=== PATIENT | male | born 1955 | race Caucasian/White ===

== ENCOUNTER 2019-12-03 19:52 | Inpatient (IN) ==
[2019-12-03] MEDS ORDERED: ONDANSETRON INJ 2 MG/ML 2 ML VIAL IV STA (20:15)
[2019-12-03] MEDS ORDERED: PIPERACILL/TAZOBAC CONSULT ACTIVE PRN (20:15)
[2019-12-03] MEDS ORDERED: PIPERACILLIN/TAZOBACTAM 4.5 GM/120 ML BAG IV ONE (20:15)
[2019-12-03 20:44] LABS: Basophils # (auto) 0.04 K/uL (0-0.2); Basophils % (auto) 0.3 %; Eosinophils # (auto) 0.09 K/uL (0-0.5); Eosinophils % (auto) 0.7 %; Hematocrit (blood only) 36.4 % (42-52); Hemoglobin 12.2 g/dL (14.0-18.0); Immature Granulocytes # (auto) 0.03 K/uL (0.00-0.02); Immature Granulocytes % (auto) 0.2 %; Lymphocytes # (auto) 2.27 K/uL (1.2-3.4); Lymphocytes % (auto) 17.1 %; Mean Corpuscular Hemoglobin 29.4 pg (25-34); Mean Corpuscular Hgb Conc 33.5 g/dL (32-36); Mean Corpuscular Volume 87.7 fL (80-100); Mean Platelet Volume 9.4 fL (7.4-10.4); Monocytes # (auto) 0.86 K/uL (0.11-0.59); Monocytes % (auto) 6.5 %; Neutrophils # (auto) 9.95 K/uL (1.4-6.5); Neutrophils % (auto) 75.2 %; Platelet Count 290 K/uL (130-400); RDW Coefficient of Variation 15.5 % (11.5-14.5); RDW Standard Deviation 50.3 fL (36.4-46.3); Red Blood Count 4.15 M/uL (4.7-6.1); White Blood Count 13.24 K/uL (4.8-10.8)
[2019-12-03 20:55] LABS: INR 1.1 (0.9-1.1); Partial Thromboplastin Ratio 1.1; Partial Thromboplastin Time 29.7 Seconds (21.0-31.0); Prothrombin Time 11.4 Seconds (9.0-12.0)
[2019-12-03 20:58] LABS: Albumin Level 2.9 gm/dl (3.4-5.0); BUN Creatinine Ratio 15.7 (10-20); Calcium 9.3 mg/dl (8.5-10.1); Creatinine Clr Calc Pharmacy 70.1 ml/min; Est GFR (African American) 85.3; Est GFR (Non-African American) 73.6; Magnesium 1.8 mg/dl (1.8-2.4); Potassium 3.7 mmol/L (3.5-5.1)
[2019-12-03 21:01] LABS: Albumin Globulin Ratio 0.6 (0.9-2); Bilirubin,Total 0.6 mg/dl (0.2-1); Globulin 4.6 gm/dl (2.5-4.0); Total Protein 7.5 gm/dl (6.4-8.2)
[2019-12-03] MEDS ORDERED: MoRPHine SULFATE 10 MG/ML CARP/VIAL IV STA (21:04)
--- NOTE | 2019-12-03 21:08 | XRay Report ---
XR chest 1V portable CLINICAL HISTORY: 64 years-old Male presenting with SEPSIS. TECHNIQUE: Portable upright AP view of the chest was obtained. COMPARISON: 02/26/2019. FINDINGS: Left internal jugular Mediport has been accessed and terminates in the superior cavoatrial junction. Several external leads noted. Atherosclerosis of the aortic arch. Cardiac silhouette top normal in si ze. Low lung volumes with hypoventilatory changes including bibasilar opacities, which are new from p rior. No large effusion or pneumothorax. Degenerative changes of the thoracic spine. Cholecystectomy clips noted. IMPRESSION: 1. Low lung volumes with hypoventilatory changes and bibasilar atelectasis. ACT 112: Negative or not required by law. Electronically signed by: Rubio Villa M.D. 12/03/2019 9:06 PM
[2019-12-03 21:16] LABS: Appearance Urine Cloudy (Clear); Bacteria Urine Automated 4+ (Negative); Bilirubin Urine Negative (Negative); Blood Urine 2+ (Negative); Cast Urine Automated 0 /lpf (0-5); Color Urine Yellow; Epithelial Cell Urine Auto 0-5 /lpf (0-5); Glucose Urine UA Negative (Negative); Ketones Urine Negative (Negative); Leukocyte Esterase Urine 3+ (Negative); Nitrite Urine Positive (Negative); Protein Urine Trace (Negative); RBC Urine Automated 0-4 /hpf (0-4); Specific Gravity Urine 1.017 (1.000-1.030); Urobilinogen Urine Negative (Negative); WBC Urine Automated >30 /hpf (0-5)
[2019-12-03] MEDS ORDERED: IOVERSOL 100ml IV PRN (21:19)
[2019-12-03] MEDS ORDERED: MoRPHine SULFATE 4 MG/ML 1 ML CARP\\VIAL ONE (21:23)
[2019-12-03] MEDS ORDERED: MoRPHine SULFATE 2 MG/ML CARP ONE (21:23)
--- NOTE | 2019-12-03 21:38 | CT Scan Report ---
CT abd pelvis IV con only CLINICAL HISTORY: 64 years-old Male presenting with abd pain, nausea, and fever, previous liver surge ry. TECHNIQUE: Multidetector CT of the abdomen and pelvis was performed after the administration of intra venous contrast. IV contrast: 93 mL of Optiray 320. One or more dose lowering techniques were used co nsistent with the principles of ALARA (as low as reasonably achievable), including automatic exposure control, mA or kV adjustment to individual patient size, and/or use of iterative reconstruction. COMPARISON: 01/07/2019. CT DOSE (mGy.cm): The estimated cumulative dose is 431.30 mGy.cm. FINDINGS: [employer] topogram: Unremarkable. Lung bases: Tip of a central venous catheter terminates at the superior cavoatrial junction. Cardiac silhouette normal in size. No pericardial or pleural effusion. Extensive bibasilar bandlike opacities and dependent changes likely extensive atelectasis. Punctate calcifications bilaterally in the lower lobes suggest progress fibrotic changes possibly in the setting of chronic aspiration. Liver: Interval development of an altered morphology of the liver primarily affecting the hepatic dom e. There is retraction of the liver capsule in segment 8 due to the presence of a dominant hypoenhanc ing mass measuring 6.1 x 5.6 cm. Multiple surrounding small hypodense lesions primarily in segments 4 A and 7. Redemonstration of a hepatic cyst along the fissure for the ligamentum teres. Vasculature is patent. Biliary: No intrahepatic or extrahepatic biliary ductal dilatation. Gallbladder contains gallstones. Pancreas: Mild parenchymal atrophy. Spleen: Normal. Adrenal glands: Normal. Kidneys and ureters: Normal. No hydronephrosis. Bladder: Incompletely evaluated secondary to underdistention. Focus of gas within the bladder lumen n oted. There is also suggestion of a fistula arising from the posterior bladder wall extending to the lower sigmoid colon. Bladder wall thickening of the posterior wall. Pelvic organs: Prostate and seminal vesicles normal. Bowel: Wall thickening of the mid to distal sigmoid colon. Diverticulosis is also evident in this reg ion. Wall thickening has overall slightly decreased from prior exam. The fistula extends to the anter ior wall of the rectosigmoid junction as mentioned. Pericolonic fat infiltration at the level of the mid sigmoid colon with adjacent peritoneal thickening. There also may be a developing 2.2 cm collecti on within the mesentery of the sigmoid colon (series 3 image 266). Lesser degree of diverticulosis no crow in the more proximal colon. The appendix is normal. No bowel obstruction. Peritoneal cavity: No free fluid or intraperitoneal gas. Developing collection in the region of the s igmoid mesentery as mentioned. Lymph nodes: No enlarged lymph nodes in the abdomen or pelvis. Vasculature: Atherosclerosis of the normal caliber abdominal aorta. IVC patent. Abdominal wall: Postsurgical changes of the midline ventral abdominal wall. Musculoskeletal: Degenerative changes of the spine. IMPRESSION: 1. Significant interval progression of disease at the right hepatic dome with the dominant lesion in segment 8 now measuring over 6 cm, previously 2 cm. Retractile changes in the liver may in part refl ect postsurgical change though there is a residual viable lesion. 2. Numerous surrounding satellite lesions, new from prior consistent with progression of disease. Th is is highly concerning for metastatic disease as mentioned on prior exam. Presumably, the dominant l esion is not a hepatic primary such as cholangiocarcinoma. Correlate with the patient's history. 3. 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 The wall thickening in the sigmoid colon may represent the site of primary malignancy and/or chronic diverticular disease. 4. Bladder wall thickening may be reactive to the presence of the fistula. 5. IMPORTANTLY, evidence of acute diverticulitis in the mid sigmoid colon with a developing 2.2 cm f luid collection in the adjacent sigmoid mesentery concerning for phlegmon/early abscess. 6. Extensive bibasilar scarring and atelectasis at the lung bases. ACT 112: Negative or not required by law. Electronically signed by: Rubio Villa M.D. 12/03/2019 9:37 PM
--- NOTE | 2019-12-04 00:09 | Emergency Department Note ---
Entered by Idalia Steven acting as a scribe for Mendez Glynn DO History of Present Illness General Chief complaint: Fever Stated complaint: FEVER,PAIN,HEADACHE Source: patient History of Present Illness Provider complaint: abdominal pain Onset (ago): day(s) (this morning) Location: abdomen Maximum Pain Intensity: 4 Relieved By: + none Exacerbated By: + none Associated symptoms: + diaphoresis, + fever/chills, + headaches, + nausea/vomiting (+nausea, -vomiting) and + other (-pain/burning during urination); no cough The patient is a 64 year old male who presents to the Emergency Room with complaints of abdominal pain since this morning. The patient notes that he has been experiencing nausea, diarrhea, headache, fever, chills, and diaphoresis. He denies any vomiting, cough, pain or burning during urination. He reports that he was in [place] today for a PET scan for his stage 4 colon cancer. He mentions that his last chemotherapy was October 26. He notes that he has a history of liver surgery last year. No other exacerbating or remitting factors. Home Medications Home Medications Medication Instructions Recorded Confirmed Type acetaminophen [Tylenol] 650 mg PO QID PRN 12/03/19 12/03/19 History polyethylene glycol 3350 [Miralax] 17 g PO DAILY PRN 12/03/19 12/03/19 History Allergies Allergy/AdvReac Type Severity Reaction Status Date / Time No Known Allergies Allergy nka Verified 12/03/19 22:31 Past Med/Surg History Medical History Colon cancer Diagnosed 01/05/19 - Mod Differentiated Invasive Carcinoma - positive KRAS Gene Mutation Kidney stone (Resolved) Surgical History History of colonoscopy (Resolved) History of tooth extraction (Resolved) Status post proximal row carpectomy of wrist (Resolved) REPAIRED RT/LEFT SIDE Family History Mother , Passed age 85 of unknown cancer No problems noted. Father , Passed age 78 of [place] No problems noted. Sister No problems noted. Son No problems noted. Daughter No problems noted. Daughter No problems noted. 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 and A total of 10 systems reviewed and were otherwise negative Physical Exam Vital Signs Vital Signs - 24 hr 12/03/19 19:58 12/03/19 20:32 12/03/19 20:45 Temperature 36.8 C Temperature Source Oral Pulse Rate 128 H 128 H 98 H Pulse Rate [Apical] Pulse Rate from SpO2 Sensor 98 H Pulse Rhythm Regular Pulse Rhythm [Apical] Pulse Strength [Apical] Respiratory Rate 18 18 13 Respiratory Effort / Characteristics Non-Labored Spontaneous Respiratory Depth Normal Respiratory Pattern Regular Blood Pressure 112/74 122/73 Blood Pressure [Right Arm] Blood Pressure Mean 86 92 Blood Pressure Mean [Right Arm] Blood Pressure Position Sitting Blood Pressure Position [Right Arm] Pulse Oximetry 93 93 93 Oxygen Delivery Method Room Air Room Air Sepsis Recent Fever Within 48 Hours No Sepsis Action Taken by Nursing No Action Required 12/03/19 20:53 12/03/19 21:00 12/03/19 21:01 Temperature Temperature Source Pulse Rate 99 H 98 H 97 H Pulse Rate [Apical] Pulse Rate from SpO2 Sensor 99 H 98 H 99 H Pulse Rhythm Pulse Rhythm [Apical] Pulse Strength [Apical] Respiratory Rate 15 16 17 Respiratory Effort / Characteristics Respiratory Depth Respiratory Pattern Blood Pressure 123/89 Blood Pressure [Right Arm] Blood Pressure Mean 93 Blood Pressure Mean [Right Arm] Blood Pressure Position Blood Pressure Position [Right Arm] Pulse Oximetry 93 94 94 Oxygen Delivery Method Sepsis Recent Fever Within 48 Hours Sepsis Action Taken by Nursing 12/03/19 21:10 12/03/19 21:28 12/03/19 21:30 Temperature Temperature Source Pulse Rate 93 H 94 H 95 H Pulse Rate [Apical] 93 H Pulse Rate from SpO2 Sensor 93 H 93 H 95 H Pulse Rhythm Pulse Rhythm [Apical] Pulse Strength [Apical] Respiratory Rate 13 16 14 Respiratory Effort / Characteristics Respiratory Depth Respiratory Pattern Blood Pressure 103/64 Blood Pressure [Right Arm] 103/64 Blood Pressure Mean 76 Blood Pressure Mean [Right Arm] 77 Blood Pressure Position Blood Pressure Position [Right Arm] Sitting Pulse Oximetry 94 94 95 Oxygen Delivery Method Sepsis Recent Fever Within 48 Hours Sepsis Action Taken by Nursing 12/03/19 21:31 12/03/19 21:40 12/03/19 21:50 Temperature Temperature Source Pulse Rate 97 H 92 H 88 Pulse Rate [Apical] Pulse Rate from SpO2 Sensor 97 H 91 H 88 Pulse Rhythm Pulse Rhythm [Apical] Pulse Strength [Apical] Respiratory Rate 20 14 18 Respiratory Effort / Characteristics Respiratory Depth Respiratory Pattern Blood Pressure Blood Pressure [Right Arm] Blood Pressure Mean Blood Pressure Mean [Right Arm] Blood Pressure Position Blood Pressure Position [Right Arm] Pulse Oximetry 95 92 92 Oxygen Delivery Method Sepsis Recent Fever Within 48 Hours Sepsis Action Taken by Nursing 12/03/19 22:00 12/03/19 22:01 12/03/19 22:10 Temperature Temperature Source Pulse Rate 89 85 87 Pulse Rate [Apical] Pulse Rate from SpO2 Sensor 89 85 87 Pulse Rhythm Pulse Rhythm [Apical] Pulse Strength [Apical] Respiratory Rate 24 16 16 Respiratory Effort / Characteristics Respiratory Depth Respiratory Pattern Blood Pressure 101/62 Blood Pressure [Right Arm] Blood Pressure Mean 77 Blood Pressure Mean [Right Arm] Blood Pressure Position Blood Pressure Position [Right Arm] Pulse Oximetry 94 93 94 Oxygen Delivery Method Sepsis Recent Fever Within 48 Hours Sepsis Action Taken by Nursing 12/03/19 22:20 12/03/19 22:30 12/03/19 22:31 Temperature Temperature Source Pulse Rate 82 77 79 Pulse Rate [Apical] Pulse Rate from SpO2 Sensor 82 78 79 Pulse Rhythm Pulse Rhythm [Apical] Pulse Strength [Apical] Respiratory Rate 15 19 14 Respiratory Effort / Characteristics Respiratory Depth Respiratory Pattern Blood Pressure 95/56 L Blood Pressure [Right Arm] Blood Pressure Mean 64 Blood Pressure Mean [Right Arm] Blood Pressure Position Blood Pressure Position [Right Arm] Pulse Oximetry 94 95 95 Oxygen Delivery Method Sepsis Recent Fever Within 48 Hours Sepsis Action Taken by Nursing 12/03/19 22:45 Temperature Temperature Source Pulse Rate Pulse Rate [Apical] 81 Pulse Rate from SpO2 Sensor Pulse Rhythm Pulse Rhythm [Apical] Regular Pulse Strength [Apical] Normal Respiratory Rate 18 Respiratory Effort / Characteristics Non-Labored Respiratory Depth Normal Respiratory Pattern Blood Pressure Blood Pressure [Right Arm] 98/62 L Blood Pressure Mean Blood Pressure Mean [Right Arm] 74 Blood Pressure Position Blood Pressure Position [Right Arm] Lying Pulse Oximetry 93 Oxygen Delivery Method Room Air Sepsis Recent Fever Within 48 Hours Sepsis Action Taken by Nursing GENERAL: alert, sitting up in bed, slightly ill appearing, diaphoretic, wearing gown EYE EXAM: normal conjunctiva OROPHARYNX: no exudate, no erythema, lips, buccal mucosa, and tongue normal and mucous membranes are moist NECK: supple, no nuchal rigidity, no adenopathy, non-tender LUNGS: Clear to auscultation. Normal chest wall mechanics HEART: no murmurs, S1 normal and S2 normal ABDOMEN: abdomen soft, non-tender, normo-active bowel sounds, no masses, no rebound or guarding. BACK: Back is symmetrical on inspection and there is no deformity, no midline tenderness, no CVA tenderness. SKIN: no rashes and no bruising UPPER EXTREMITIES: upper extremities are grossly normal. LOWER EXTREMITIES: No pitting edema. NEURO EXAM: Normal sensorium, cranial nerves II-XII grossly intact, normal speech, no gross weakness of arms, no gross weakness of legs. Course Course ED COURSE: Vital signs were reviewed and showed normotensive The patients medical record was reviewed The above diagnostic studies were performed and reviewed. ED treatments and interventions as stated above. 2008: The patient was evaluated in room B10. A complete history and physical examination was performed. 2204: I discussed the patient's [facility], he will accept the patient for further evaluation. 2214: Upon reevaluation, the patient is resting comfortably. I discussed my findings with the patient and he understands and agrees with the treatment plan. Based on the patients age, coexisting illnesses, exam and lab findings the deci trina to treat as an inpatient was made. The patient remained stable while under my care. The patient will be evaluated for further management. Administered Medications Ioversol (Optiray 320 100ml) 93 ml IV ONCE PRN PRN Reason: Interaction Checking Stop: 12/07/19 21:18 Last Admin: 12/03/19 21:20 Dose: 93 ml Documented by: [id number] Discontinued Medications Piperacillin Sod/Tazobactam Sod (Zosyn) 4.5 gm in 120 mls @ 240 mls/hr IV NOW ONE Stop: 12/03/19 20:44 Last Infusion: 12/03/19 21:31 Dose: 0 mls/hr Documented by: [id number] Admin: 12/03/19 20:59 Dose: 240 mls/hr Documented by: [id number] Morphine Sulfate (Morphine Sulfate) 6 mg IV NOW STA Stop: 12/03/19 21:05 Last Admin: 12/03/19 21:30 Dose: 6 mg Documented by: [id number] Morphine Sulfate (Morphine Sulfate) Confirm Administered Dose 2 mg .ROUTE .STK- MED ONE Stop: 12/03/19 21:24 Last Admin: 12/03/19 21:30 Dose: Not Given Documented by: [id number] Morphine Sulfate (Morphine Sulfate) Confirm Administered Dose 4 mg .ROUTE .STK- MED ONE Stop: 12/03/19 21:24 Last Admin: 12/03/19 21:30 Dose: Not Given Documented by: [id number] Ondansetron HCl (Zofran) 4 mg IV NOW STA Stop: 12/03/19 20:16 Last Admin: 12/03/19 20:59 Dose: 4 mg Documented by: [id number] Medical Decision Making Differential Diagnosis Differential diagnoses includes but is not limited to gastritis, peptic ulcer disease, GERD, gallbladder disease, pancreatitis, small bowel obstruction, acute coronary syndrome, pericarditis, ischemic bowel, irritable bowel disease, irritable bowel syndrome, appendicitis, diverticulitis, malignancy, hernia, urin rajat tract infection, torsion, perforation, trauma, infectious. Medical Records Attestation: I reviewed the patient's medical records. Home Medications Current Medication List: was personally reviewed by me Laboratory Data Attestation: I reviewed the patient's lab results. Result diagrams: 12/03/19 20:28 12/03/19 20:28 Lab Results 12/03/19 12/03/19 12/03/19 Range/Units 20:28 20:28 20:28 WBC 13.24 H (4.8-10.8) K/uL RBC 4.15 L (4.7-6.1) M/uL Hgb 12.2 L (14.0-18.0) g/dL Hct 36.4 L (42-52) % MCV 87.7 (80-100) fL MCH 29.4 (25-34) pg MCHC 33.5 (32-36) g/dL RDW Std Deviation 50.3 H (36.4-46.3) fL RDW Coeff of Raquel 15.5 H (11.5-14.5) % Plt Count 290 (130-400) K/uL MPV 9.4 (7.4-10.4) fL Immature Gran % (Auto) 0.2 % Neut % (Auto) 75.2 % Lymph % (Auto) 17.1 % [place] % (Auto) 6.5 % Eos % (Auto) 0.7 % Baso % (Auto) 0.3 % Immature Gran # (Auto) 0.03 H (0.00-0.02) K/uL Neut # (Auto) 9.95 H (1.4-6.5) K/uL Lymph # (Auto) 2.27 (1.2-3.4) K/uL [place] # (Auto) 0.86 H (0.11-0.59) K/uL Eos # (Auto) 0.09 (0-0.5) K/uL Baso # (Auto) 0.04 (0-0.2) K/uL PT 11.4 (9.0-12.0) Seconds INR 1.1 (0.9-1.1) APTT 29.7 (21.0-31.0) Seconds PTT Ratio 1.1 Sodium 137 (136-145) mmol/L Potassium 3.7 (3.5-5.1) mmol/L Chloride 106 (98-107) mmol/L Carbon Dioxide 25 (21-32) mmol/L Anion Gap 6.0 (3-11) BUN 17 (7-18) mg/dl Creatinine 1.05 (0.6-1.4) mg/dl Est Cr Clr Drug Dosing 70.1 ml/min Est GFR ( Amer) 85.3 Est GFR (Non-Af Amer) 73.6 BUN/Creatinine Ratio 15.7 (10-20) Glucose 97 (70-99) mg/dl Lactate (0.4-2.0) mmol/L Calcium 9.3 (8.5-10.1) mg/dl Magnesium 1.8 (1.8-2.4) mg/dl Total Bilirubin 0.6 (0.2-1) mg/dl AST 16 (15-37) U/L ALT 18 (12-78) U/L Alkaline Phosphatase 174 H (45-117) U/L Total Protein 7.5 (6.4-8.2) gm/dl Albumin 2.9 L (3.4-5.0) gm/dl Globulin 4.6 H (2.5-4.0) gm/dl Albumin/Globulin Ratio 0.6 L (0.9-2) Urine Color Urine Appearance (Clear) Urine pH (4.5-7.5) Ur Specific [place] (1.000-1.030) Urine Protein (Negative) Urine Glucose (UA) (Negative) Urine Ketones (Negative) Urine Blood (Negative) Urine Nitrite (Negative) Urine Bilirubin (Negative) Urine Urobilinogen (Negative) Ur Leukocyte Esterase (Negative) Urine WBC (Auto) (0-5) /hpf Urine RBC (Auto) (0-4) /hpf U Hyaline Cast (Auto) (0-5) /lpf U Epithel Cells (Auto) (0-5) /lpf Urine Bacteria (Auto) (Negative) 12/03/19 12/03/19 Range/Units 20:28 20:34 WBC (4.8-10.8) K/uL RBC (4.7-6.1) M/uL Hgb (14.0-18.0) g/dL Hct (42-52) % MCV (80-100) fL MCH (25-34) pg MCHC (32-36) g/dL RDW Std Deviation (36.4-46.3) fL RDW Coeff of Raquel (11.5-14.5) % Plt Count (130-400) K/uL MPV (7.4-10.4) fL Immature Gran % (Auto) % Neut % (Auto) % Lymph % (Auto) % [place] % (Auto) % Eos % (Auto) % Baso % (Auto) % Immature Gran # (Auto) (0.00-0.02) K/uL Neut # (Auto) (1.4-6.5) K/uL Lymph # (Auto) (1.2-3.4) K/uL [place] # (Auto) (0.11-0.59) K/uL Eos # (Auto) (0-0.5) K/uL Baso # (Auto) (0-0.2) K/uL PT (9.0-12.0) Seconds INR (0.9-1.1) APTT (21.0-31.0) Seconds PTT Ratio Sodium (136-145) mmol/L Potassium (3.5-5.1) mmol/L Chloride (98-107) mmol/L Carbon Dioxide (21-32) mmol/L Anion Gap (3-11) BUN (7-18) mg/dl Creatinine (0.6-1.4) mg/dl Est Cr Clr Drug Dosing ml/min Est GFR ( Amer) Est GFR (Non-Af Amer) BUN/Creatinine Ratio (10-20) Glucose (70-99) mg/dl Lactate 1.4 (0.4-2.0) mmol/L Calcium (8.5-10.1) mg/dl Magnesium (1.8-2.4) mg/dl Total Bilirubin (0.2-1) mg/dl AST (15-37) U/L ALT (12-78) U/L Alkaline Phosphatase (45-117) U/L Total Protein (6.4-8.2) gm/dl Albumin (3.4-5.0) gm/dl Globulin (2.5-4.0) gm/dl Albumin/Globulin Ratio (0.9-2) Urine Color Yellow Urine Appearance Cloudy A (Clear) Urine pH 5.0 (4.5-7.5) Ur Specific [place] 1.017 (1.000-1.030) Urine Protein Trace H (Negative) Urine Glucose (UA) Negative (Negative) Urine Ketones Negative (Negative) Urine Blood 2+ H (Negative) Urine Nitrite Positive A (Negative) Urine Bilirubin Negative (Negative) Urine Urobilinogen Negative (Negative) Ur Leukocyte Esterase 3+ H (Negative) Urine WBC (Auto) >30 H (0-5) /hpf Urine RBC (Auto) 0-4 (0-4) /hpf U Hyaline Cast (Auto) 0 (0-5) /lpf U Epithel Cells (Auto) 0-5 (0-5) /lpf Urine Bacteria (Auto) 4+ H (Negative) Imaging Data Radiologist's Impression: Radiology results as stated below per my review and the radiologist's interpretation: XR chest 1V portable CLINICAL HISTORY: 64 years-old Male presenting with SEPSIS. TECHNIQUE: Portable upright AP view of the chest was obtained. COMPARISON: 02/26/2019. FINDINGS: Left internal jugular Mediport has been accessed and terminates in the superior cavoatrial junction. Several external leads noted. Atherosclerosis of the aortic arch. Cardiac silhouette top normal in size. Low lung volumes with hypoventilatory changes including bibasilar opacities, which are new from prior. No large effusion or pneumothorax. Degenerative changes of the thoracic spine. Cholecystectomy clips noted. IMPRESSION: 1. Low lung volumes with hypoventilatory changes and bibasilar atelectasis. ACT 112: Negative or not required by law. Electronically signed by: Rubio Villa M.D. 12/03/2019 9:[address] abd pelvis IV con only CLINICAL HISTORY: 64 years-old Male presenting with abd pain, nausea, and fever, previous liver surgery. TECHNIQUE: Multidetector CT of the abdomen and pelvis was performed after the administration of intravenous contrast. IV contrast: 93 mL of Optiray 320. One or more dose lowering techniques were used consistent with the principles of ALARA (as low as reasonably achievable), including automatic exposure control, mA or kV adjustment to individual patient size, and/or use of iterative reconstruction. COMPARISON: 01/07/2019. CT DOSE (mGy.cm): The estimated cumulative dose is 431.30 mGy.cm. 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 Lung bases: Tip of a central venous catheter terminates at the superior cavoatrial junction. Cardiac silhouette normal in size. No pericardial or pleural effusion. Extensive bibasilar bandlike opacities and dependent changes likely extensive atelectasis. Punctate calcifications bilaterally in the lower lobes suggest progress fibrotic changes possibly in the setting of chronic aspiration. Liver: Interval development of an altered morphology of the liver primarily affecting the hepatic dome. There is retraction of the liver capsule in segment 8 due to the presence of a dominant hypoenhancing mass measuring 6.1 x 5.6 cm. Multiple surrounding small hypodense lesions primarily in segments 4A and 7. Redemonstration of a hepatic cyst along the fissure for the ligamentum teres. Vasculature is patent. Biliary: No intrahepatic or extrahepatic biliary ductal dilatation. Gallbladder contains gallstones. Pancreas: Mild parenchymal atrophy. Spleen: Normal. Adrenal glands: Normal. Kidneys and ureters: Normal. No hydronephrosis. Bladder: Incompletely evaluated secondary to underdistention. Focus of gas within the bladder lumen noted. There is also suggestion of a fistula arising from the posterior bladder wall extending to the lower sigmoid colon. Bladder wall thickening of the posterior wall. Pelvic organs: Prostate and seminal vesicles normal. Bowel: Wall thickening of the mid to distal sigmoid colon. Diverticulosis is also evident in this region. Wall thickening has overall slightly decreased from prior exam. The fistula extends to the anterior wall of the rectosigmoid junction as mentioned. Pericolonic fat infiltration at the level of the mid sigmoid colon with adjacent peritoneal thickening. There also may be a developing 2.2 cm collection within the mesentery of the sigmoid colon (series 3 image 266). Lesser degree of diverticulosis noted in the more proximal colon. The appendix is normal. No bowel obstruction. Peritoneal cavity: No free fluid or intraperitoneal gas. Developing collection in the region of the sigmoid mesentery as mentioned. Lymph nodes: No enlarged lymph nodes in the abdomen or pelvis. Vasculature: Atherosclerosis of the normal caliber abdominal aorta. IVC patent. Abdominal wall: Postsurgical changes of the midline ventral abdominal wall. Musculoskeletal: Degenerative changes of the spine. IMPRESSION: 1. Significant interval progression of disease at the right hepatic dome with the dominant lesion in segment 8 now measuring over 6 cm, previously 2 cm. Retractile changes in the liver may in part reflect postsurgical change though there is a residual viable lesion. 2. Numerous surrounding satellite lesions, new from prior consistent with progression of disease. This is highly concerning for metastatic disease as mentioned on prior exam. Presumably, the dominant lesion is not a hepatic primary such as cholangiocarcinoma. Correlate with the patient's history. 3. 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 The wall thickening in the sigmoid colon may represent the site of primary malignancy and/or chronic diverticular disease. 4. Bladder wall thickening may be reactive to the presence of the fistula. 5. IMPORTANTLY, evidence of acute diverticulitis in the mid sigmoid colon with a developing 2.2 cm fluid collection in the adjacent sigmoid mesentery concerning for phlegmon/early abscess. 6. Extensive bibasilar scarring and atelectasis at the lung bases. ACT 112: Negative or not required by law. Electronically signed by: Rubio Villa M.D. 12/03/2019 9:37 PM ECG Data Attestation: I personally reviewed and interpreted this ECG as follows: Indication: + abdominal pain Rate (beats per minute): 111 Rhythm: + sinus tachycardia ECG Intervals/blocks: + Normal QT-c ECG [place]: + Normal ECG Findings: + Other (poor baseline); no PVCs Blood Pressure Blood Pressure Findings: Low blood pressure Blood Pressure Disposition: did not require urgent referral MDM Narrative Patient is a 64-year-old male that presents to the ER with fevers of 102 at home, heart rate at 130 and abdominal pain associate with nausea. IV was established blood work obtained showed a leukocytosis of 13,000. Mild anemia at 12. INR was unremarkable. BMP along with LFTs bilirubin was unremarkable. UA with nitrates, white cells, leuks and bacteria consistent with a clear UTI. He was covered with IV Zosyn and 2 L IV fluids. Updated and his heart rate did trend down. Discussed with the hospitalist patient was admitted for sepsis secondary to UTI. Impression & Plan Sepsis, UTI (urinary tract infection) Discharge Plan Visit Data Chief Complaint: Fever Stated Complaint: FEVER,PAIN,HEADACHE ED Provider: Mendez Glynn Discharge Problem: Sepsis, UTI (urinary tract infection) Patient Disposition: Being Evaluated by Hospitalist Forms Stand Alone Forms: My [facility] [employer] Prescriptions Prescriptions: No Action acetaminophen [Tylenol] 325 mg Tablet 650 mg PO QID PRN (Reason: Pain) RF: 0 polyethylene glycol 3350 [Miralax] 17 gram Powder In Packet 17 g PO DAILY PRN (Reason: Constipation) RF: 0 Referrals Referrals: Florentino Manjarrez DO [Primary Care Provider] - Discharge Problem: Sepsis Qualifiers: Sepsis type: sepsis due to unspecified organism Sepsis acute organ dysfunction status: unspecified Qualified Code(s): A41.9 - Sepsis, unspecified organism UTI (urinary tract infection) Qualifiers: Urinary tract infection type: site unspecified Hematuria presence: without hematuria Qualified Code(s): N39.0 - Urinary tract infection, site not specified The scribe's documentation has been prepared under my direction and personally reviewed by me in its entirety. I confirm that the note above accurately reflects all work, treatment, procedures, and medical decision making performed by me.
[2019-12-04] MEDS ORDERED: HYDROmorphone INJ 0.5 MG/0.5 ML SYR IV PRN (01:04)
[2019-12-04] MEDS ORDERED: ONDANSETRON INJ 2 MG/ML 2 ML VIAL IV PRN (01:04)
[2019-12-04] MEDS ORDERED: POLYETHYLENE (MIRALAX) 17 GM PACK PO PRN (01:04)
[2019-12-04] MEDS ORDERED: PIPERACILL/TAZOBAC CONSULT ACTIVE PRN (01:04)
[2019-12-04] MEDS ORDERED: ACETAMINOPHEN 325 MG TAB PO PRN (01:04)
[2019-12-04] MEDS: D5W AND NSS 1,000 ML IV SCH ×4 (01:13→23:31)
[2019-12-04] MEDS: PIPERACILLIN/TAZOBACTAM 3.375 GM in DEXTROSE 5% 100 ML IV SCH ×3 (02:19→17:17)
--- NOTE | 2019-12-04 02:59 | History and Physical Report ---
DATE OF ADMISSION: 12/04/2019 CHIEF COMPLAINT: Abdominal pain and fever. HISTORY OF PRESENT ILLNESS: This is a 64-year-old male with past medical history significant for adenocarcinoma of rectosigmoid junction, status post surgery, status post chemo 2 cycles, last chemo was on 10/26/2019. The patient follows with [facility]. Today he had a PET scan done at [facility] and when he came back was tired and worn out, was feeling cold all day and he had fever and severe abdominal pain which prompted him to come to the ER and he was found to have elevated white count of 13,000. UA was positive. CT of abdomen and pelvis showing metastatic disease and also acute diverticulitis in the mid sigmoid colon with 2.2 cm fluid collection adjacent to sigmoid mesentery concerning for phlegmon or early abscess. The patient received Zosyn and pain medication in the ER. Currently, resting comfortably. Pain is improved. States he had couple episodes of diarrhea today, but no blood in stools or black stools. No nausea, no vomiting. No chest pain or shortness of breath. No cough. Normal bladder movements. No hematuria or burning micturition. No swelling in the legs. No rash. No headache, no blurred vision, no earache, no runny nose, no sore throat. Appetite is okay. He is eating better. No dysphagia or odynophagia. Somewhat hard to hear. He lives with his , ambulates okay. ALLERGIES: No known drug allergies. PAST MEDICAL HISTORY: As mentioned above. PAST SURGICAL HISTORY: Colonoscopy, dental surgery, vasectomy, a port insertion, diagnostic laparoscopy, exploratory laparotomy, resection of segment 8 of the liver, cholecystectomy. MEDICATIONS: Tylenol p.r.n., MiraLax p.r.n. FAMILY HISTORY: Significant for mother has arthritis. Father has cancer, diabetes, heart disorder. SOCIAL HISTORY: and lives with his . Smokes half pack a day for 20 years. Drinks 3 times a week. No drug use. REVIEW OF SYMPTOMS: As per HPI. Rest of review of symptoms negative. PHYSICAL EXAMINATION: GENERAL: The patient is moderate build, not in acute distress. VITAL SIGNS: Temperature 36.8, pulse 81, respiratory rate 18, blood pressure 98/62, [id number] % room air. HEENT: No pallor, no icterus. Pupils equal, round, and reactive to light. NECK: No JVD, no neck masses, no carotid bruits. CARDIOVASCULAR: S1, S2 heard. Regular rate and rhythm. No murmur, no gallop. RESPIRATORY SYSTEM: Normal AP diameter. No accessory muscle use. No wheezing, no crackles. ABDOMEN: Soft, bowel sounds present. Mild discomfort in periumbilical region. No guarding. No rigidity. No distention. CENTRAL NERVOUS SYSTEM: Cranial nerves II-XII grossly intact. Nonfocal. EXTREMITIES: No edema, no erythema. LABORATORY DATA: WBC 13.2, hemoglobin 12.2, hematocrit 36.4, [id number]. PT 11.4, INR 1.1, APTT 29.7. Sodium 137, potassium 3.7, chloride 106, bicarb 25, BUN 17, creatinine 1.05, serum glucose 97, lactate 1.4, calcium 9.3. Total bilirubin 0.6, AST 16, ALT 18, alkaline phosphatase 174, total protein 7.5. Urinalysis positive for +2 blood, positive for nitrite, leukocyte esterase, bacteria 4+. Chest x-ray: Low lung volumes with hypoventilatory changes and bibasilar atelectasis. CT of the abdomen and pelvis shows significant interval progression of disease at the right hepatic dome with a dominant lesion in segment 8 measuring over 6 cm, previously 2 cm; Retractile changes in the liver may in part reflect postsurgical change, though there is a residual viable lesion; numerous surrounding satellite lesions, new from prior, consistent with progression of disease, this is highly concerning for metastatic disease; presumably dominant lesion is not a hepatic primary such as cholangiocarcinoma, thickening of the sigmoid colon felt at site of primary malignancy and chronic diverticular disease, evidence of acute diverticulitis in the sigmoid colon with developing 2.2 cm fluid collection adjacent to sigmoid mesentery concerning for phlegmon or early abscess, extensive bibasilar scaring and atelectasis of the lung. EKG: Sinus tachycardia at 111, no acute ST changes seen. ASSESSMENT AND PLAN: This is a 64-year-old male who presents with abdominal pain, fever and found to have diverticulitis and urinary tract infection. 1. Abdominal pain and fever, most likely secondary to acute diverticulitis and also UTI, Zosyn given in the ER which we will continue. We will follow the cultures. Keep him n.p.o.,IV D5 normal saline at 125 mL per hour, IV Dilaudid p.r.n., IV antiemetics p.r.n. Consult Surgery in a.m. for further recommendations. 2. History of adenocarcinoma of the rectosigmoid junction, had surgery and also currently is following with [facility], status post 2 cycles of chemo. Had a PET scan done today. Follow with Hem/Onc. CAT scan showing disease progression. Needs close followup. 3. DVT prophylaxis, SCDs. DISPOSITION: Admit to medical floor. Expect discharge home and follow with family doctor. Level 1 full code. MTDD
[2019-12-04 07:24] LABS: Basophils # (auto) 0.03 K/uL (0-0.2); Basophils % (auto) 0.4 %; Eosinophils # (auto) 0.14 K/uL (0-0.5); Eosinophils % (auto) 1.7 %; Hematocrit (blood only) 32.3 % (42-52); Hemoglobin 10.6 g/dL (14.0-18.0); Immature Granulocytes # (auto) 0.01 K/uL (0.00-0.02); Immature Granulocytes % (auto) 0.1 %; Lymphocytes # (auto) 1.35 K/uL (1.2-3.4); Lymphocytes % (auto) 16.1 %; Mean Corpuscular Hemoglobin 28.7 pg (25-34); Mean Corpuscular Hgb Conc 32.8 g/dL (32-36); Mean Corpuscular Volume 87.5 fL (80-100); Mean Platelet Volume 9.3 fL (7.4-10.4); Monocytes # (auto) 0.67 K/uL (0.11-0.59); Neutrophils # (auto) 6.18 K/uL (1.4-6.5); Neutrophils % (auto) 73.7 %; Platelet Count 202 K/uL (130-400); RDW Coefficient of Variation 15.5 % (11.5-14.5); RDW Standard Deviation 50.6 fL (36.4-46.3); Red Blood Count 3.69 M/uL (4.7-6.1); White Blood Count 8.38 K/uL (4.8-10.8)
[2019-12-04 07:51] LABS: Calcium 8.6 mg/dl (8.5-10.1); Creatinine Clr Calc Pharmacy 74.5 ml/min; Est GFR (African American) 91.6; Magnesium 1.9 mg/dl (1.8-2.4); Potassium 3.6 mmol/L (3.5-5.1)
--- NOTE | 2019-12-04 09:37 | Surgery Consultation ---
Date of Consultation December 04, 2019 Assessment & Plan (1) Abscess of sigmoid colon due to diverticulitis: This is a 64y M with a PMH of adenocarcinoma of the rectosigmoid with liver mets, who presents to the [facility] ED yesterday with complaints of abdominal pain and fevers. Workup revealed concern for acute sigmoid diverticulitis with a developing 2.2cm abscess. WBC in the ED was 13 and is downtrending today to 8.3. Patient afebrile since admission. He reports feeling mildly better today. He is passing some flatus, no BM. Recommend a trial of conservative management for now with bowel rest, IVF, and continuing IV abx. Should patient fail to progress may consider a CT scan later this admission to evaluate abscess, if enlarging or requires surgical or IR intervention patient may wish to transfer to [facility] as most of his recent care has been there. Will re-evaluate patient later this AM with Dr. Pagan. as above. diverticulitis/colitis with small abcess is his acute issue. no indication for urgent surgical intervention. already feeling somewhat improved. wbc improved. will follow along. ok to have "hot tea" so will order clear liquid diet. continue antibiotics. History of Present Illness Attending Physician: Sandeep Ronquillo DO History of Present Illness This is a 64y M with a PMH of adenocarcinoma of the rectosigmoid with mets to the liver who presents to the [facility] ED on 12/03/19 with complaints of abdominal pain and fevers. Of significance patient was found to have a colonic mass diagnosed by colonoscopy last december. Workup showed the mass was + for adenocarcinoma, along with imaging evidence concerning for hepatic mets. Patient underwent chemotherapy at [facility] starting 03/15. After chemo, patient went to the OR for resection of a liver segment that was c/f metastatic disease. Patient reports that he has suffered from abdominal pain ever since that surgery. He describes it as crampy and has no association with food. Yesterday, the patient had a PET scan, but says he did not feel well all day. He said the abdominal pain is the similar in character as to what it has been, but overall worse in severity. He subsequently developed fevers, chills, and diarrhea, and as pain progressed (rating pain 7/10) he came to the ED for further evaluation. In the ED patient's WBC [address] he had a CT scan showing concern for acute diverticulitis with a developing 2.2cm fluid collection in the adjacent sigmoid mesentery concerning for early abscess formation. The patient was admitted under medicine service and surgery was consulted to help assist with care. 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 Father , Passed age 78 of [place] No problems noted. Sister No problems noted. Son No problems noted. Daughter No problems noted. Daughter No problems noted. 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 Feels Safe at Home: Yes Smoking Status: Former smoker Tobacco Type: cigarettes ; packs per day: 1 ; Second Hand Exposure: No ; Hx Alcohol Use: Yes Alcohol type: hard liquor Alcohol Intake Frequency: Weekly Hx Substance Use: No caffeine: Yes (2 cups of coffee/day ) Dental Care, Regularly: Yes Review of Systems Constitutional: + fever, + chills and + fatigue Respiratory: no shortness of breath Cardiovascular: no chest pain Gastrointestinal: + abdominal pain, + bloating and + diarrhea/loose stools; no nausea, no vomiting and no blood in stools Genitourinary: no dysuria and no urinary frequency Physical Exam Physical Exam: awake/alert Constitutional: well developed, well nourished and cooperative; no acute distress Respiratory: no respiratory distress Gastrointestinal (Abdomen): Inspection/Auscultation: + abdomen distended (mild) and + abdominal surgical scar (from prior liver segmentectomy; well healed) Percussion/Palpation: + abdomen tender (mild tenderness to palpation; mostly R upper side of abdomen) and abdomen soft Results & Data Vital Signs (Past 12 Hours) Vital Signs Temp Pulse Pulse Resp BP BP BP 12/04/19 07:18 36.5 C 80 18 115/71 12/04/19 03:56 36.4 C L 63 18 96/59 L 12/04/19 01:00 36.4 C L 73 18 108/71 12/04/19 00:55 66 16 106/66 12/04/19 00:00 64 16 106/64 12/03/19 22:45 81 18 98/62 L 12/03/19 22:31 79 14 12/03/19 22:30 77 19 95/56 L 12/03/19 22:20 82 15 12/03/19 22:10 87 16 12/03/19 22:01 85 16 12/03/19 22:00 89 24 101/62 12/03/19 21:50 88 18 12/03/19 21:40 92 H 14 Pulse Ox 12/04/19 07:18 93 12/04/19 03:56 94 12/04/19 01:00 94 12/04/19 00:55 95 12/04/19 00:00 94 12/03/19 22:45 93 12/03/19 22:31 95 12/03/19 22:30 95 12/03/19 22:20 94 12/03/19 22:10 94 12/03/19 22:01 93 12/03/19 22:00 94 12/03/19 21:50 92 12/03/19 21:[address] abd pelvis IV con only CLINICAL HISTORY: 64 years-old Male presenting with abd pain, nausea, and fever, previous liver surgery. TECHNIQUE: Multidetector CT of the abdomen and pelvis was performed after the administration of intravenous contrast. IV contrast: 93 mL of Optiray 320. One or more dose lowering techniques were used consistent with the principles of ALARA (as low as reasonably achievable), including automatic exposure control, mA or kV adjustment to individual patient size, and/or use of iterative reconstruction. COMPARISON: 01/07/2019. CT DOSE (mGy.cm): The estimated cumulative dose is 431.30 mGy.cm. FINDINGS: [employer] Specialist topogram: Unremarkable. Lung bases: Tip of a central venous catheter terminates at the superior cavoatrial junction. Cardiac silhouette normal in size. No pericardial or pleural effusion. Extensive bibasilar bandlike opacities and dependent changes likely extensive atelectasis. Punctate calcifications bilaterally in the lower lobes suggest progress fibrotic changes possibly in the setting of chronic aspiration. Liver: Interval development of an altered morphology of the liver primarily affecting the hepatic dome. There is retraction of the liver capsule in segment 8 due to the presence of a dominant hypoenhancing mass measuring 6.1 x 5.6 cm. Multiple surrounding small hypodense lesions primarily in segments 4A and 7. Redemonstration of a hepatic cyst along the fissure for the ligamentum teres. Vasculature is patent. Biliary: No intrahepatic or extrahepatic biliary ductal dilatation. Gallbladder contains gallstones. Pancreas: Mild parenchymal atrophy. Spleen: Normal. Adrenal glands: Normal. Kidneys and ureters: Normal. No hydronephrosis. Bladder: Incompletely evaluated secondary to underdistention. Focus of gas w ithin the bladder lumen noted. There is also suggestion of a fistula arising from the posterior bladder wall extending to the lower sigmoid colon. Bladder wall thickening of the posterior wall. Pelvic organs: Prostate and seminal vesicles normal. Bowel: Wall thickening of the mid to distal sigmoid colon. Diverticulosis is also evident in this region. Wall thickening has overall slightly decreased from prior exam. The fistula extends to the anterior wall of the rectosigmoid junction as mentioned. Pericolonic fat infiltration at the level of the mid sigmoid colon with adjacent peritoneal thickening. There also may be a developing 2.2 cm collection within the mesentery of the sigmoid colon (series 3 image 266). Lesser degree of diverticulosis noted in the more proximal colon. The appendix is normal. No bowel obstruction. Peritoneal cavity: No free fluid or intraperitoneal gas. Developing collection in the region of the sigmoid mesentery as mentioned. Lymph nodes: No enlarged lymph nodes in the abdomen or pelvis. Vasculature: Atherosclerosis of the normal caliber abdominal aorta. IVC patent. Abdominal wall: Postsurgical changes of the midline ventral abdominal wall. Musculoskeletal: Degenerative changes of the spine. IMPRESSION: 1. Significant interval progression of disease at the right hepatic dome with the dominant lesion in segment 8 now measuring over 6 cm, previously 2 cm. Retractile changes in the liver may in part reflect postsurgical change though there is a residual viable lesion. 2. Numerous surrounding satellite lesions, new from prior consistent with pro gression of disease. This is highly concerning for metastatic disease as mentioned on prior exam. Presumably, the dominant lesion is not a hepatic primary such as cholangiocarcinoma. Correlate with the patient's history. 3. 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 The wall thickening in the sigmoid colon may represent the site of primary malignancy and/or chronic diverticular disease. 4. Bladder wall thickening may be reactive to the presence of the fistula. 5. IMPORTANTLY, evidence of acute diverticulitis in the mid sigmoid colon with a developing 2.2 cm fluid collection in the adjacent sigmoid mesentery concerning for phlegmon/early abscess. 6. Extensive bibasilar scarring and atelectasis at the lung bases. ACT 112: Negative or not required by law. Electronically signed by: Rubio Villa M.D. 12/03/2019 9:37 PM PG Care Time/CCT Total # of Minutes Spent Total Time Spent with Patient: Total time spent is greater than 50% in coordination of care (as documented) at patient's floor/unit and/or counseling patient: Coding Level of Care Code 80926 Initial Inpt Care Lvl 3 Diagnoses Abscess of sigmoid colon due to diverticulitis K57.20
--- NOTE | 2019-12-04 12:01 | Hospitalist Progress Note ---
Date of Service December 04, 2019 Assessment & Plan (1) Abscess of sigmoid colon due to diverticulitis: (2) Sepsis: (3) UTI (urinary tract infection): (4) Adenocarcinoma of rectosigmoid junction: ASSESSMENT AND PLAN: This is a 64-year-old male who presents with abdominal pain, fever and found to have diverticulitis and urinary tract infection. 1. Abdominal pain and fever, most likely secondary to acute diverticulitis and also UTI, Zosyn given in the ER which we will continue. We will follow the cultures. Keep him n.p.o.,IV D5 normal saline at 125 mL per hour, IV Dilaudid p.r.n., IV antiemetics p.r.n. Consult Surgery in a.m. for further recommendations. 2. History of adenocarcinoma of the rectosigmoid junction, had surgery and also currently is following with [facility], status post 2 cycles of chemo. Had a PET scan done today. Follow with Hem/Onc. CAT scan showing disease progression. Needs close followup. 3. DVT prophylaxis, SCDs. Labs checked ROS-No Headache, No Visual Changes, No Nausea, No Vomiting, No Fever, No Chills, No Neck Pain or Stiffness, No Chest Pain, No Palpitations, No SOB, No SCHWARTZ, No Cough, No Sputum, No Wheezing, + Abdominal Pain, No Diarrhea, No Hematemesis, No Hemoptysis, No Unexpected Weight Loss, No Flank pain, No Melena, No Hematochezia, No Frequency, No Urgency, No Burning, No Hematuria, No Rashes, No Diaphoresis. Appetite is Normal Physical Exam Gen-AAO x 3, NAD, Afebrile Head-NCAT, EOMI, PERRLA, Anicteric Sclera, No Posterior Pharyngeal Erythema Neck-Supple, No JVD, No Thyromegaly, No Masses, No LAD, No Bruits Lungs-Clear to Auscultation Bilaterally, No Rales, No Rhonchi, No Wheezing, No Crepitus Chest-No S4, +S1, +S2, No S3, No Murmurs, No Rubs, No Gallops, No Ectopy Abdomen-Soft, Bowel Sounds Present, LLQ Tender, Non Distended, No Hepatomegaly, No Splenomegaly, No Palpable Masses, No Rebound, No Rigidity, No Guarding Musculoskeletal-Full Range of Motion Bilaterally, No CVAT Extremities-No Cyanosis, No Clubbing, No Edema Nuero-Cranial Nerves II-XII grossly intact, Motor WNL, DTRs WNL, Strength WNL, Non Focal Psych-Normal Mood Results & Data ([facility]) Vital Signs (Past 12 Hours) Vital Signs Temp Pulse Pulse Resp BP BP BP 12/04/19 11:14 37 C 76 20 130/75 12/04/19 07:18 36.5 C 80 18 115/71 12/04/19 03:56 36.4 C L 63 18 96/59 L 12/04/19 01:00 36.4 C L 73 18 108/71 12/04/19 00:55 66 16 106/66 Pulse Ox 12/04/19 11:14 94 12/04/19 07:18 93 12/04/19 03:56 94 12/04/19 01:00 94 12/04/19 00:55 95 (1) Sepsis Sepsis acute organ dysfunction status: unspecified Sepsis type: sepsis due to unspecified organism Qualified Code(s): A41.9 - Sepsis, unspecified organism (2) UTI (urinary tract infection) Hematuria presence: without hematuria Urinary tract infection type: site unspecified Qualified Code(s): N39.0 - Urinary tract infection, site not specified
--- NOTE | 2019-12-04 14:11 | Electrocardiogram Report ---
Test Reason : Blood Pressure : / mmHG Vent. Rate : 111 BPM Atrial Rate : 111 BPM P-R Int : 144 ms QRS Dur : 082 ms QT Int : 314 ms P-R-T Axes : 009 027 040 degrees QTc Int : 427 ms Poor data quality, interpretation may be adversely affected Sinus tachycardia Low voltage QRS Borderline ECG When compared with ECG of 07-JAN-2019 21:21, Vent. rate has increased BY 53 BPM Confirmed by William Peña ([id number]) on 12/04/2019 2:10:54 PM Referred By: REFERRED SELF Confirmed By:William Peña
[2019-12-05] MEDS ORDERED: HEPARIN 100 UNIT/ML 5ML FLUSH FLUSH PRN (01:26)
[2019-12-05] MEDS: PIPERACILLIN/TAZOBACTAM 3.375 GM in DEXTROSE 5% 100 ML IV SCH ×3 (01:35→17:34)
[2019-12-05 06:28] LABS: Basophils # (auto) 0.02 K/uL (0-0.2); Basophils % (auto) 0.3 %; Eosinophils # (auto) 0.13 K/uL (0-0.5); Eosinophils % (auto) 1.7 %; Hematocrit (blood only) 31.7 % (42-52); Hemoglobin 10.4 g/dL (14.0-18.0); Immature Granulocytes # (auto) 0.01 K/uL (0.00-0.02); Immature Granulocytes % (auto) 0.1 %; Lymphocytes # (auto) 1.46 K/uL (1.2-3.4); Lymphocytes % (auto) 18.9 %; Mean Corpuscular Hgb Conc 32.8 g/dL (32-36); Mean Corpuscular Volume 88.3 fL (80-100); Mean Platelet Volume 9.2 fL (7.4-10.4); Monocytes # (auto) 0.61 K/uL (0.11-0.59); Monocytes % (auto) 7.9 %; Neutrophils # (auto) 5.51 K/uL (1.4-6.5); Neutrophils % (auto) 71.1 %; Platelet Count 200 K/uL (130-400); RDW Coefficient of Variation 15.2 % (11.5-14.5); RDW Standard Deviation 49.7 fL (36.4-46.3); Red Blood Count 3.59 M/uL (4.7-6.1); White Blood Count 7.74 K/uL (4.8-10.8)
[2019-12-05 07:19] LABS: BUN Creatinine Ratio 7.8 (10-20); Calcium 8.3 mg/dl (8.5-10.1); Creatinine Clr Calc Pharmacy 79.9 ml/min; Est GFR (African American) 93.9; Potassium 3.6 mmol/L (3.5-5.1)
[2019-12-05] MEDS: D5W AND NSS 1,000 ML IV SCH ×3 (07:36→23:45)
--- NOTE | 2019-12-05 07:46 | Discharge Summary ---
Date of Service December 05, 2019 Admission HPI Per Admitting Provider This is a 64-year-old male with past medical history significant for adenocarcinoma of rectosigmoid junction, status post surgery, status post chemo 2 cycles, last chemo was on 10/26/2019. The patient follows with [facility]. Today he had a PET scan done at [place] and when he came back was tired and worn out, was feeling cold all day and he had fever and severe abdominal pain which prompted him to come to the ER and he was found to have elevated white count of 13,000. UA was positive. CT of abdomen and pelvis showing metastatic disease and also acute diverticulitis in the mid sigmoid colon with 2.2 cm fluid collection adjacent to sigmoid mesentery concerning for phlegmon or early abscess. The patient received Zosyn and pain medication in the ER. Currently, resting comfortably. Pain is improved. States he had couple episodes of diarrhea today, but no blood in stools or black stools. No nausea, no vomiting. No chest pain or shortness of breath. No cough. Normal bladder movements. No hematuria or burning micturition. No swelling in the legs. No rash. No headache, no blurred vision, no earache, no runny nose, no sore throat. Appetite is okay. He is eating better. No dysphagia or odynophagia. Somewhat hard to hear. He lives with his , ambulates okay. Admission Exam Per Admitting Provider PHYSICAL EXAMINATION: GENERAL: The patient is moderate build, not in acute distress. VITAL SIGNS: Temperature 36.8, pulse 81, respiratory rate 18, blood pressure 98/62, cehbin23 % room air. HEENT: No pallor, no icterus. Pupils equal, round, and reactive to light. NECK: No JVD, no neck masses, no carotid bruits. CARDIOVASCULAR: S1, S2 heard. Regular rate and rhythm. No murmur, no gallop. RESPIRATORY SYSTEM: Normal AP diameter. No accessory muscle use. No wheezing, no crackles. ABDOMEN: Soft, bowel sounds present. Mild discomfort in periumbilical region. No guarding. No rigidity. No distention. CENTRAL NERVOUS SYSTEM: Cranial nerves II-XII grossly intact. Nonfocal. EXTREMITIES: No edema, no erythema. Principal Diagnosis Diverticulitis Colon CA Discharge Exam Physical Exam Gen-AAO x 3, NAD, Afebrile Head-NCAT, EOMI, PERRLA, Anicteric Sclera, No Posterior Pharyngeal Erythema Neck-Supple, No JVD, No Thyromegaly, No Masses, No LAD, No Bruits Lungs-Clear to Auscultation Bilaterally, No Rales, No Rhonchi, No Wheezing, No Crepitus Chest-No S4, +S1, +S2, No S3, No Murmurs, No Rubs, No Gallops, No Ectopy Abdomen-Soft, Bowel Sounds Present, Non Tender, Non Distended, No Hepatomegaly, No Splenomegaly, No Palpable Masses, No Rebound, No Rigidity, No Guarding Musculoskeletal-Full Range of Motion Bilaterally, No CVAT Extremities-No Cyanosis, No Clubbing, No Edema Nuero-Cranial Nerves II-XII grossly intact, Motor WNL, DTRs WNL, Strength WNL, Non Focal Psych-Normal Mood Discharge Data Allergies Allergy/AdvReac Type Severity Reaction Status Date / Time No Known Allergies Allergy nka Verified 12/03/19 22:31 Consultations 12/03/19 22:02 ED Decision to Admit Stat 12/04/19 01:04 Consult Case Management - Discharge Planning Routine 12/04/19 08:00 Consult General Surgery Routine Current Diagnoses Sepsis, unspecified organism (12/04/19) Malignant neoplasm of rectosigmoid junction (12/04/19) Diverticulitis of large intestine with perforation and abscess without bleeding (12/04/19) Urinary tract infection, site not specified (12/04/19) Allergies No Known Allergies Allergy (Verified 12/03/19 22:31) nka Height/Weight/Isolation Height 5 ft 7 in Weight 89.4 kg Chemistry 12/03/19 12/04/19 12/05/19 20:28 06:54 06:11 Sodium 137 138 141 Potassium 3.7 3.6 3.6 Chloride 106 108 H 112 H Carbon Dioxide 25 26 24 Anion Gap 6.0 4.0 5.0 BUN 17 14 8 D Creatinine 1.05 0.99 0.97 Glucose 97 132 H 107 H Urinalysis 12/03/19 20:34 Urine Color Yellow Urine Appearance Cloudy A Urine pH 5.0 Ur Specific [place] 1.017 Urine Protein Trace H Urine Glucose (UA) Negative Urine Ketones Negative Urine Blood 2+ H Urine Nitrite Positive A Urine Bilirubin Negative Microbiology 12/03/19 20:34 Urine,Clean Catch Urine Culture - Preliminary Escherichia coli 12/03/19 20:28 Blood Aerobic Blood Culture - Preliminary No growth in Aerobic bottle after 24 hours. 12/03/19 20:28 Blood Anaerobic Blood Culture - Preliminary No growth in Anaerobic bottle after 24 hours. 12/03/19 20:44 Blood Aerobic Blood Culture - Preliminary No growth in Aerobic bottle after 24 hours. 12/03/19 20:44 Blood Anaerobic Blood Culture - Preliminary No growth in Anaerobic bottle after 24 hours. Ordered Studies 12/03/19 20:15 CT abd pelvis IV con only Stat Hospital Course (1) Abscess of sigmoid colon due to diverticulitis: (2) Sepsis: (3) UTI (urinary tract infection): (4) Adenocarcinoma of rectosigmoid junction: ASSESSMENT AND PLAN: This is a 64-year-old male who presents with abdominal pain, fever and found to have diverticulitis and urinary tract infection. 1. Abdominal pain and fever, most likely secondary to acute diverticulitis and also UTI, Zosyn given in the ER. DC home today on Cipro and Flagyl x 10 days 2. History of adenocarcinoma of the rectosigmoid junction, had surgery and also currently is following with [facility], status post 2 cycles of chemo. Had a PET scan done 12/04. Follow with Hem/Onc. CAT scan showing disease progression. Needs close followup. Total Time Total Time Spent Total Time Spent (In Minutes): 45 mins Total Time Includes: Examination of the Patient, Discharge Planning, Medication Reconciliation and Communication With Other Providers Discharge Plan Discharge Items Reason For Visit: ABD PAIN, FEVER Medications and DC Order Prescriptions: No Action acetaminophen [Tylenol] 325 mg Tablet 650 mg PO QID PRN (Reason: Pain) RF: 0 polyethylene glycol 3350 [Miralax] 17 gram Powder In Packet 17 g PO DAILY PRN (Reason: Constipation) RF: 0 Admission Data Admit Date/Time: 12/04/19 00:21 Attending Provider: Sandeep Ronquillo Admit Provider: John Lynn Primary Care Provider: Florentino Manjarrez Other Providers: John Lynn ; Chad Law
--- NOTE | 2019-12-05 09:59 | Surgery Progress Note ---
Date of Service December 05, 2019 Assessment & Plan (1) Abscess of sigmoid colon due to diverticulitis: Clinically doing much better. I would recommend advancing to full liquid diet. If he does well with this we could advance him to a low residue diet tomorrow. I would recommend another 24 hours of IV antibiotics and transition to oral antibiotics tomorrow with potential discharge tomorrow if no new issues. We will continue to follow. Subjective Starting to feel better. The majority of his pain has resolved. He still has a twinge of discomfort in the lower abdomen. No nausea. The chills have resolved. Physical Exam Physical Exam: Alert and oriented no acute distress Abdomen is soft. Mild suprapubic and left lower quadrant tenderness. No guarding or rebound. Results & Data Vital Signs (Past 12 Hours) Vital Signs Temp Pulse Resp BP Pulse Ox 12/05/19 07:00 36.7 C 74 18 110/74 94 12/05/19 04:13 36.7 C 68 18 112/69 95 12/04/19 23:22 36.6 C 75 16 98/59 L 98 PG Care Time/CCT Total # of Minutes Spent Total Time Spent with Patient: Total time spent is greater than 50% in coordination of care (as documented) at patient's floor/unit and/or counseling patient: Coding Level of Care Code 48172 Subseq Hosp Care Lvl 3 Diagnoses Abscess of sigmoid colon due to diverticulitis K57.20
[2019-12-06] MEDS: PIPERACILLIN/TAZOBACTAM 3.375 GM in DEXTROSE 5% 100 ML IV SCH (01:24)
--- NOTE | 2019-12-06 06:27 | Hospitalist Progress Note ---
Date of Service December 06, 2019 Assessment & Plan (1) Abscess of sigmoid colon due to diverticulitis: (2) Sepsis: (3) UTI (urinary tract infection): (4) Adenocarcinoma of rectosigmoid junction: ASSESSMENT AND PLAN: This is a 64-year-old male who presents with abdominal pain, fever and found to have diverticulitis and urinary tract infection. 1. Abdominal pain and fever, most likely secondary to acute diverticulitis and also UTI, Zosyn given in the ER. DC home today on Cipro and Flagyl x 10 days 2. History of adenocarcinoma of the rectosigmoid junction, had surgery and also currently is following with [facility], status post 2 cycles of chemo. Had a PET scan done 12/04. Follow with Hem/Onc. CAT scan showing disease progression. Needs close followup. DC today, surgery wanted one more night Abx ROS-No Headache, No Visual Changes, No Nausea, No Vomiting, No Fever, No Chills, No Neck Pain or Stiffness, No Chest Pain, No Palpitations, No SOB, No SCHWARTZ, No Cough, No Sputum, No Wheezing, No Abdominal Pain, No Diarrhea, No Hematemesis, No Hemoptysis, No Unexpected Weight Loss, No Flank pain, No Melena, No Hematochezia, No Frequency, No Urgency, No Burning, No Hematuria, No Rashes, No Diaphoresis. Appetite is Normal Physical Exam Gen-AAO x 3, NAD, Afebrile Head-NCAT, EOMI, PERRLA, Anicteric Sclera, No Posterior Pharyngeal Erythema Neck-Supple, No JVD, No Thyromegaly, No Masses, No LAD, No Bruits Lungs-Clear to Auscultation Bilaterally, No Rales, No Rhonchi, No Wheezing, No Crepitus Chest-No S4, +S1, +S2, No S3, No Murmurs, No Rubs, No Gallops, No Ectopy Abdomen-Soft, Bowel Sounds Present, Non Tender, Non Distended, No Hepatomegaly, No Splenomegaly, No Palpable Masses, No Rebound, No Rigidity, No Guarding Musculoskeletal-Full Range of Motion Bilaterally, No CVAT Extremities-No Cyanosis, No Clubbing, No Edema Nuero-Cranial Nerves II-XII grossly intact, Motor WNL, DTRs WNL, Strength WNL, Non Focal Psych-Normal Mood Results & Data ([facility]) Vital Signs (Past 12 Hours) Vital Signs Temp Pulse Resp BP Pulse Ox 12/06/19 04:02 36.6 C 64 16 145/78 H 95 12/05/19 23:09 37.1 C 71 19 153/79 H 95 12/05/19 20:00 36.7 C 74 19 148/73 H 97 (1) Sepsis Sepsis acute organ dysfunction status: unspecified Sepsis type: sepsis due to unspecified organism Qualified Code(s): A41.9 - Sepsis, unspecified organism (2) UTI (urinary tract infection) Hematuria presence: without hematuria Urinary tract infection type: site unspecified Qualified Code(s): N39.0 - Urinary tract infection, site not specified
== END 2019-12-06 08:44 | disposition home or self-care (01) | DRG 391 ==
LOC: ED 19:52 → 4W 12-04 00:21

== ENCOUNTER 2020-03-10 17:45 | Inpatient (IN) ==
[2020-03-10] MEDS ORDERED: SODIUM CHLORIDE 0.9% 1000ML 1,000 ML IV ONE ×2 (18:01→20:04)
[2020-03-10] MEDS ORDERED: CEFEPIME 2,000 MG/20 ML VIAL IV STA (18:01)
[2020-03-10] MEDS ORDERED: ACETAMINOPHEN 325 MG TAB PO STA (18:08)
--- NOTE | 2020-03-10 18:13 | Emergency Department Note ---
Impression & Plan Sepsis, Adenocarcinoma of rectosigmoid junction, Abdominal pain ED Provider Note NAME: SASKIA COYNE AGE: 64 SEX: M : 1955 ARRIVES VIA: Walk-In INFORMANT: Patient, ED PROVIDER(S): Mendez Glynn DO CHIEF COMPLAINT: Abdominal pain and chills HPI: Patient is a 64-year-old male who presents the ER for abdominal pain associated with fevers and chills which started today around 12. He has a history of colon cancer with metastatic disease to the liver. Last dose of chemo was this past Saturday. He denies any other symptoms. He notes the pain is a 6 out of 10. He does feel like his previous bouts of diverticulitis. He admits to history of appendectomy as well as a partial liver resection. No other exacerbating or remitting factors. ROS: See above HPI for pertinent positives & negatives. A total of 10 systems reviewed and were otherwise negative. PAST MEDICAL HISTORY:See Below PAST SURGICAL HISTORY:See Below FAMILY HISTORY:See Below SOCIAL HISTORY:See Below HOME MEDICATIONS:See Below ALLERGIES:See Below VITALS:See Below PHYSICAL EXAMINATION: GENERAL: Sitting up in bed, alert, well appearing, well nourished, no distress, non-toxic EYE EXAM: normal conjunctiva. OROPHARYNX: no exudate, no erythema, lips, buccal mucosa, and tongue normal and mucous membranes are moist NECK: supple, no nuchal rigidity, no adenopathy, non-tender LUNGS: Clear to auscultation. Normal chest wall mechanics HEART: Tachycardic, S1 normal and S2 normal ABDOMEN: abdomen soft, minimal periumbilical tenderness, normo-active bowel sounds, no masses, no rebound or guarding. BACK: Back is symmetrical on inspection and there is no deformity, no midline tenderness, no CVA tenderness. SKIN: no rashes and no bruising UPPER EXTREMITIES: upper extremities are grossly normal. LOWER EXTREMITIES: No pitting edema. NEURO EXAM: Normal sensorium, cranial nerves II-XII grossly intact, normal speech, no gross weakness of arms, no gross weakness of legs. MEDICAL DECISION MAKING: Patient is a 64-year-old male currently undergoing chemotherapy for colon cancer with a previous liver resection presents the ER for fever associated with c hills. He also complains of periumbilical abdominal pain. IV was established blood work was obtained. Sepsis alert was called. He was found to have a leukopenia at 1.7. No significant anemia. Moderate neutropenia at 1.3. INR unremarkable. BMP with mild hypokalemia. Lactate was elevated 2.6. LFTs bilirubin was unremarkable. Troponin was detectable but not positive. UA was negative. CT abdomen pelvis and CT chest was reviewed from yesterday. I did repeat the abdomen pelvis as he did not have any pain yesterday but has some today. It was really unchanged. He was given 2 g IV cefepime as well as 2 L IV fluids. Influenza was negative. He has no upper respiratory symptoms. He was treated for sepsis with broad-spectrum antibiotics as well as neutropenic fever. Patient and family were updated bedside. Heart rate was initially 140s but trended down to the low 110s. Patient was admitted to the hospitalist for further work-up. Triage Nursing notes reviewed. Prior medical records reviewed Vital Signs: reviewed and remarkable for febrile and tachycardic Differential diagnosis: Differential diagnosis includes etiologies such as sepsis, UTI, pneumonia, metabolic, electrolyte abnormalities, cardiac sources, intracerebral event, toxicologic, neurological, as well as others were entertained. ER treatment provided: See below Diagnostics interpreted by me: ECG: Sinus tachycardia rate of 138 Normal axis No PVCs Normal QTC Nonspecific ST wave changes in the lateral leads Cardiac Monitoring: An order was placed for continuous cardiac monitoring. The monitor shows a rate of 143 with sinus rhythm. Laboratory studies: As stated above and show below. Imaging studies: Portable AP upright 1 view of the chest shows no focal infiltrate CT abdomen pelvis shows no new acute pathology Consultation(s): Discussed with the hospitalist for admission ED COURSE: Procedures: none Critical Care: I have personally spent 33 minutes of critical care time in the direct manag ement of this patient. This includes bedside care, interpretation of diagnostic studies, and testing, discussion with consultants, patient, and family members, and other required patient management activities. This 33 minutes is in excess of all separately billable procedures. 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 Other Information That Helps Us Care for You: No Feels Safe at Home: Yes Safety Concerns: Afraid for Self Smoking Status: Unknown if ever smoked Hx Alcohol Use: No Hx Substance Use: No caffeine: Yes (2 cups of coffee/day ) Dental Care, Regularly: Yes Allergies Allergies Allergy/AdvReac Type Severity Reaction Status Date / Time No Known Allergies Allergy nka Verified 03/10/20 20:35 Home Meds Home Medications Medication Instructions Recorded Confirmed Cidc-Mvsj-Dgor-Water 10 ml PO UD 03/10/20 03/10/20 Results & Data (ED) Vital Signs Vital Signs - 24 hr 03/10/20 17:55 03/10/20 18:01 03/10/20 18:44 Temperature 37.8 C H Temperature Source Oral Pulse Rate 146 H 139 H Pulse Rate [Apical] Pulse Rate from SpO2 Sensor 142 H Respiratory Rate 24 Respiratory Effort / Characteristics Non-Labored Spontaneous Respiratory Depth Normal Respiratory Pattern Regular Blood Pressure 121/82 144/90 H Blood Pressure [Left Arm] Blood Pressure Mean 95 110 Blood Pressure Mean [Left Arm] Blood Pressure Position Sitting Pulse Oximetry 93 94 Oxygen Delivery Method Room Air Room Air Room Air Sepsis Recent Fever Within 48 Hours Yes Sepsis New/Unexplained Change in Mental Status No Sepsis Action Taken by Nursing No Action Required 03/10/20 19:00 03/10/20 20:28 Temperature Temperature Source Pulse Rate 126 H Pulse Rate [Apical] 125 H Pulse Rate from SpO2 Sensor 125 H Respiratory Rate 20 18 Respiratory Effort / Characteristics Respiratory Depth Respiratory Pattern Blood Pressure 121/75 Blood Pressure [Left Arm] 110/67 Blood Pressure Mean 83 Blood Pressure Mean [Left Arm] 81 Blood Pressure Position Pulse Oximetry 91 93 Oxygen Delivery Method Room Air Room Air Sepsis Recent Fever Within 48 Hours Sepsis New/Unexplained Change in Mental Status Sepsis Action Taken by Nursing Laboratory Data Result diagrams: 03/10/20 18:25 03/10/20 18:25 Lab Results 03/10/20 03/10/20 03/10/20 Range/Units 18:25 18:25 18:25 WBC 1.73 L (4.8-10.8) K/uL RBC 4.81 (4.7-6.1) M/uL Hgb 13.7 L (14.0-18.0) g/dL POC Hgb (14.0-18.0) g/dl Hct 41.6 L (42-52) % POC Hct (42-52) % MCV 86.5 (80-100) fL MCH 28.5 (25-34) pg MCHC 32.9 (32-36) g/dL RDW Std Deviation 59.6 H (36.4-46.3) fL RDW Coeff of Raquel 19.1 H (11.5-14.5) % Plt Count 140 (130-400) K/uL MPV 9.1 (7.4-10.4) fL Immature Gran % (Auto) 0.6 % Neut % (Auto) 80.3 % Lymph % (Auto) 17.3 % Reagan % (Auto) 0.6 % Eos % (Auto) 1.2 % Baso % (Auto) 0.0 % Immature Gran # (Auto) 0.01 (0.00-0.02) K/uL Neut # (Auto) 1.39 L (1.4-6.5) K/uL Lymph # (Auto) 0.30 L (1.2-3.4) K/uL Reagan # (Auto) 0.01 L (0.11-0.59) K/uL Eos # (Auto) 0.02 (0-0.5) K/uL Baso # (Auto) 0.00 (0-0.2) K/uL PT 11.0 (9.0-12.0) Seconds INR 1.0 (0.9-1.1) APTT 20.7 L (21.0-31.0) Seconds PTT Ratio 0.7 POC Sodium (135-144) mmol/L Sodium 140 (136-145) mmol/L POC Potassium (3.3-5.0) mmol/L Potassium 3.2 L (3.5-5.1) mmol/L POC Chloride (101-112) mmol/L Chloride 108 H (98-107) mmol/L Carbon Dioxide 23 (21-32) mmol/L POC Total CO2 (24-31) mmol/L Anion Gap 9.0 (3-11) POC Anion Gap (16-25) mmol/L POC BUN (7-18) mg/dl BUN 19 H (7-18) mg/dl Creatinine 1.17 (0.6-1.4) mg/dl POC Creatinine (0.6-1.3) mg/dl Est Cr Clr Drug Dosing 64.1 ml/min Est GFR ( Amer) 74.9 Est GFR (Non-Af Amer) 64.6 BUN/Creatinine Ratio 16.3 (10-20) Glucose 103 H (70-99) mg/dl POC Glucose (other) (70-99) mg/dl Lactate (0.4-2.0) mmol/L Calcium 8.1 L (8.5-10.1) mg/dl POC Ioniz Calcium Yefri (1.12-1.32) mmol/l Magnesium 1.6 L (1.8-2.4) mg/dl Total Bilirubin 0.4 (0.2-1) mg/dl AST 27 (15-37) U/L ALT 27 (12-78) U/L Alkaline Phosphatase 139 H (45-117) U/L Troponin I 0.039 (0-0.045) ng/ml Total Protein 6.4 (6.4-8.2) gm/dl Albumin 2.8 L (3.4-5.0) gm/dl Globulin 3.6 (2.5-4.0) gm/dl Albumin/Globulin Ratio 0.8 L (0.9-2) Urine Color Urine Appearance (Clear) Urine pH (4.5-7.5) Ur Specific Marydel (1.000-1.030) Urine Protein (Negative) Urine Glucose (UA) (Negative) Urine Ketones (Negative) Urine Blood (Negative) Urine Nitrite (Negative) Urine Bilirubin (Negative) Urine Urobilinogen (Negative) Ur Leukocyte Esterase (Negative) Urine WBC (Auto) (0-5) /hpf Urine RBC (Auto) (0-4) /hpf U Hyaline Cast (Auto) (0-5) /lpf U Epithel Cells (Auto) (0-5) /lpf Urine Bacteria (Auto) (Negative) Influenza Type A (PCR) (Neg) Influenza Type B (PCR) (Neg) 03/10/20 03/10/20 03/10/20 Range/Units 18:25 18:30 18:40 WBC (4.8-10.8) K/uL RBC (4.7-6.1) M/uL Hgb (14.0-18.0) g/dL POC Hgb (14.0-18.0) g/dl Hct (42-52) % POC Hct (42-52) % MCV (80-100) fL MCH (25-34) pg MCHC (32-36) g/dL RDW Std Deviation (36.4-46.3) fL RDW Coeff of Raquel (11.5-14.5) % Plt Count (130-400) K/uL MPV (7.4-10.4) fL Immature Gran % (Auto) % Neut % (Auto) % Lymph % (Auto) % Reagan % (Auto) % Eos % (Auto) % Baso % (Auto) % Immature Gran # (Auto) (0.00-0.02) K/uL Neut # (Auto) (1.4-6.5) K/uL Lymph # (Auto) (1.2-3.4) K/uL Reagan # (Auto) (0.11-0.59) K/uL Eos # (Auto) (0-0.5) K/uL Baso # (Auto) (0-0.2) K/uL PT (9.0-12.0) Seconds INR (0.9-1.1) APTT (21.0-31.0) Seconds PTT Ratio POC Sodium (135-144) mmol/L Sodium (136-145) mmol/L POC Potassium (3.3-5.0) mmol/L Potassium (3.5-5.1) mmol/L POC Chloride (101-112) mmol/L Chloride (98-107) mmol/L Carbon Dioxide (21-32) mmol/L POC Total CO2 (24-31) mmol/L Anion Gap (3-11) POC Anion Gap (16-25) mmol/L POC BUN (7-18) mg/dl BUN (7-18) mg/dl Creatinine (0.6-1.4) mg/dl POC Creatinine (0.6-1.3) mg/dl Est Cr Clr Drug Dosing ml/min Est GFR ( Amer) Est GFR (Non-Af Amer) BUN/Creatinine Ratio (10-20) Glucose (70-99) mg/dl POC Glucose (other) (70-99) mg/dl Lactate 2.6 H* (0.4-2.0) mmol/L Calcium (8.5-10.1) mg/dl POC Ioniz Calcium Yefri (1.12-1.32) mmol/l Magnesium (1.8-2.4) mg/dl Total Bilirubin (0.2-1) mg/dl AST (15-37) U/L ALT (12-78) U/L Alkaline Phosphatase (45-117) U/L Troponin I (0-0.045) ng/ml Total Protein (6.4-8.2) gm/dl Albumin (3.4-5.0) gm/dl Globulin (2.5-4.0) gm/dl Albumin/Globulin Ratio (0.9-2) Urine Color Yellow Urine Appearance Clear (Clear) Urine pH 5.0 (4.5-7.5) Ur Specific Marydel 1.016 (1.000-1.030) Urine Protein Trace H (Negative) Urine Glucose (UA) Negative (Negative) Urine Ketones Negative (Negative) Urine Blood Negative (Negative) Urine Nitrite Negative (Negative) Urine Bilirubin Negative (Negative) Urine Urobilinogen Negative (Negative) Ur Leukocyte Esterase Negative (Negative) Urine WBC (Auto) 1-5 (0-5) /hpf Urine RBC (Auto) 0-4 (0-4) /hpf U Hyaline Cast (Auto) 1-5 (0-5) /lpf U Epithel Cells (Auto) 5-10 H (0-5) /lpf Urine Bacteria (Auto) Negative (Negative) Influenza Type A (PCR) Neg for Influ A (Neg) Influenza Type B (PCR) Neg for Influ B (Neg) 03/10/20 03/10/20 Range/Units 18:51 20:17 WBC (4.8-10.8) K/uL RBC (4.7-6.1) M/uL Hgb (14.0-18.0) g/dL POC Hgb 12.9 L (14.0-18.0) g/dl Hct (42-52) % POC Hct 38 L (42-52) % MCV (80-100) fL MCH (25-34) pg MCHC (32-36) g/dL RDW Std Deviation (36.4-46.3) fL RDW Coeff of Raquel (11.5-14.5) % Plt Count (130-400) K/uL MPV (7.4-10.4) fL Immature Gran % (Auto) % Neut % (Auto) % Lymph % (Auto) % Reagan % (Auto) % Eos % (Auto) % Baso % (Auto) % Immature Gran # (Auto) (0.00-0.02) K/uL Neut # (Auto) (1.4-6.5) K/uL Lymph # (Auto) (1.2-3.4) K/uL Reagan # (Auto) (0.11-0.59) K/uL Eos # (Auto) (0-0.5) K/uL Baso # (Auto) (0-0.2) K/uL PT (9.0-12.0) Seconds INR (0.9-1.1) APTT (21.0-31.0) Seconds PTT Ratio POC Sodium 139 (135-144) mmol/L Sodium (136-145) mmol/L POC Potassium 3.0 L (3.3-5.0) mmol/L Potassium (3.5-5.1) mmol/L POC Chloride 104 (101-112) mmol/L Chloride (98-107) mmol/L Carbon Dioxide (21-32) mmol/L POC Total CO2 22 L (24-31) mmol/L Anion Gap (3-11) POC Anion Gap 17.0 (16-25) mmol/L POC BUN 17 (7-18) mg/dl BUN (7-18) mg/dl Creatinine (0.6-1.4) mg/dl POC Creatinine 0.9 (0.6-1.3) mg/dl Est Cr Clr Drug Dosing ml/min Est GFR ( Amer) Est GFR (Non-Af Amer) BUN/Creatinine Ratio (10-20) Glucose (70-99) mg/dl POC Glucose (other) 94 (70-99) mg/dl Lactate 2.6 H* (0.4-2.0) mmol/L Calcium (8.5-10.1) mg/dl POC Ioniz Calcium Yefri 1.04 L (1.12-1.32) mmol/l Magnesium (1.8-2.4) mg/dl Total Bilirubin (0.2-1) mg/dl AST (15-37) U/L ALT (12-78) U/L Alkaline Phosphatase (45-117) U/L Troponin I (0-0.045) ng/ml Total Protein (6.4-8.2) gm/dl Albumin (3.4-5.0) gm/dl Globulin (2.5-4.0) gm/dl Albumin/Globulin Ratio (0.9-2) Urine Color Urine Appearance (Clear) Urine pH (4.5-7.5) Ur Specific Marydel (1.000-1.030) Urine Protein (Negative) Urine Glucose (UA) (Negative) Urine Ketones (Negative) Urine Blood (Negative) Urine Nitrite (Negative) Urine Bilirubin (Negative) Urine Urobilinogen (Negative) Ur Leukocyte Esterase (Negative) Urine WBC (Auto) (0-5) /hpf Urine RBC (Auto) (0-4) /hpf U Hyaline Cast (Auto) (0-5) /lpf U Epithel Cells (Auto) (0-5) /lpf Urine Bacteria (Auto) (Negative) Influenza Type A (PCR) (Neg) Influenza Type B (PCR) (Neg) Administered Medications Discontinued Medications Acetaminophen (Tylenol) 650 mg PO NOW STA Stop: 03/10/20 18:09 Last Admin: 03/10/20 18:45 Dose: 650 mg Documented by: [id number] Sodium Chloride (Nss 1000ml) 1,000 mls @ 999 mls/hr IV .Q1H1M ONE Stop: 03/10/20 19:01 Last Infusion: 03/10/20 19:46 Dose: 0 mls/hr Documented by: [id number] Admin: 03/10/20 18:45 Dose: 999 mls/hr Documented by: [id number] Cefepime HCl (Maxipime) 2,000 mg in 20 mls @ 5 mls/min IV NOW STA; Protocol Stop: 03/10/20 18:04 Last Admin: 03/10/20 19:00 Dose: 5 mls/min Documented by: [id number] Sodium Chloride (Nss 1000ml) 1,000 mls @ 999 mls/hr IV .Q1H1M ONE Stop: 03/10/20 21:04 Last Infusion: 03/10/20 21:20 Dose: 0 mls/hr Documented by: [id number] Admin: 03/10/20 20:19 Dose: 999 mls/hr Documented by: [id number] Sodium Chloride (Nss) 500 mls @ 500 mls/hr IV .Q1H QUOC Stop: 03/10/20 23:32 Last Admin: 03/10/20 22:48 Dose: 500 mls/hr Documented by: [id number] Ioversol (Optiray 320 100ml) 91 ml IV ONCE PRN PRN Reason: Interaction Checking Stop: 03/14/20 19:24 Last Admin: 03/10/20 19:26 Dose: 91 ml Documented by: [id number] Discharge Plan Visit Data *Final* Discharge Date/Time: 03/10/20 21:57 Chief Complaint: Fever Stated Complaint: FEVER ED Provider: Mendez Glynn Discharge Problem: Sepsis, Adenocarcinoma of rectosigmoid junction, Abdominal pain Patient Disposition: Admitted As Inpatient Discharge Instructions Interventions: ED Discharge Assessment Last Done: 03/10/20 21:57 Discharge Problem: Sepsis Qualifiers: Sepsis type: sepsis due to unspecified organism Sepsis acute organ dysfunction status: unspecified Qualified Code(s): A41.9 - Sepsis, unspecified organism Abdominal pain Qualifiers: Abdominal location: unspecified location Qualified Code(s): R10.9 - Unspecified abdominal pain
[2020-03-10 18:43] LABS: Eosinophils # (auto) 0.02 K/uL (0-0.5); Eosinophils % (auto) 1.2 %; Hematocrit (blood only) 41.6 % (42-52); Hemoglobin 13.7 g/dL (14.0-18.0); Immature Granulocytes # (auto) 0.01 K/uL (0.00-0.02); Immature Granulocytes % (auto) 0.6 %; Lymphocytes % (auto) 17.3 %; Mean Corpuscular Hemoglobin 28.5 pg (25-34); Mean Corpuscular Hgb Conc 32.9 g/dL (32-36); Mean Corpuscular Volume 86.5 fL (80-100); Mean Platelet Volume 9.1 fL (7.4-10.4); Monocytes # (auto) 0.01 K/uL (0.11-0.59); Monocytes % (auto) 0.6 %; Neutrophils # (auto) 1.39 K/uL (1.4-6.5); Neutrophils % (auto) 80.3 %; Platelet Count 140 K/uL (130-400); RDW Coefficient of Variation 19.1 % (11.5-14.5); RDW Standard Deviation 59.6 fL (36.4-46.3); Red Blood Count 4.81 M/uL (4.7-6.1); White Blood Count 1.73 K/uL (4.8-10.8)
[2020-03-10 18:49] LABS: Partial Thromboplastin Ratio 0.7; Partial Thromboplastin Time 20.7 Seconds (21.0-31.0)
[2020-03-10 19:05] LABS: iSTAT Creatinine 0.9 mg/dl (0.6-1.3); iSTAT Hemoglobin 12.9 g/dl (14.0-18.0); iSTAT Ionized Calcium 1.04 mmol/l (1.12-1.32)
[2020-03-10 19:07] LABS: Albumin Level 2.8 gm/dl (3.4-5.0); BUN Creatinine Ratio 16.3 (10-20); Calcium 8.1 mg/dl (8.5-10.1); Creatinine Clr Calc Pharmacy 64.1 ml/min; Est GFR (African American) 74.9; Est GFR (Non-African American) 64.6; Magnesium 1.6 mg/dl (1.8-2.4); Potassium 3.2 mmol/L (3.5-5.1)
--- NOTE | 2020-03-10 19:09 | XRay Report ---
XR chest 1V portable CLINICAL HISTORY: Sepsis. Rectal cancer. COMPARISON STUDY: Chest CT March 09, 2020. Chest radiograph February 01, 2020. FINDINGS: Left-sided [id number] is in place. Linear left basilar opacity reflects atelectasis. The re is no consolidation or evidence for pulmonary edema. A calcified granuloma is noted within the rig ht middle lobe. Cardiomediastinal silhouette is stable. IMPRESSION: No acute cardiopulmonary findings. ACT 112: Negative or not required by law. Electronically signed by: Mukesh Brewster M.D. 03/10/2020 7:07 PM
[2020-03-10 19:12] LABS: Albumin Globulin Ratio 0.8 (0.9-2); Bilirubin,Total 0.4 mg/dl (0.2-1); Globulin 3.6 gm/dl (2.5-4.0); Total Protein 6.4 gm/dl (6.4-8.2); Troponin I 0.039 ng/ml (0-0.045)
[2020-03-10 19:19] LABS: Appearance Urine Clear (Clear); Bacteria Urine Automated Negative (Negative); Bilirubin Urine Negative (Negative); Blood Urine Negative (Negative); Color Urine Yellow; Glucose Urine UA Negative (Negative); Ketones Urine Negative (Negative); Leukocyte Esterase Urine Negative (Negative); Nitrite Urine Negative (Negative); Protein Urine Trace (Negative); RBC Urine Automated 0-4 /hpf (0-4); Specific Gravity Urine 1.016 (1.000-1.030); Urobilinogen Urine Negative (Negative)
[2020-03-10] MEDS ORDERED: IOVERSOL 100ml IV PRN (19:25)
[2020-03-10 19:52] LABS: Influenza A virus by PCR Neg for Influ A (Neg); Influenza B virus by PCR Neg for Influ B (Neg)
--- NOTE | 2020-03-10 20:00 | CT Scan Report ---
CT OF THE ABDOMEN AND PELVIS WITH CONTRAST CLINICAL HISTORY: Abdominal pain, fever, tachycardia. Rectal cancer. COMPARISON STUDY: CT of the abdomen and pelvis March 09, 2020. TECHNIQUE: Following IV administration of 91 mL of Optiray-320, axial images of the abdomen and pelvi s were obtained from the lung bases to the proximal femurs. Images were reviewed in the axial, sagitt al, and coronal planes. IV contrast was administered without complication. Automated exposure contro l was utilized for the study. A dose lowering technique was utilized adhering to the principles of A CARIDAD. CT DOSE: 820.78 mGycm FINDINGS: Lung bases are unremarkable. Postoperative findings within the liver are unchanged in appea liana since prior exam. Several small hepatic lesions measure up to 1 cm are also unchanged. The sple en, adrenal glands, kidneys and pancreas are unremarkable. There is no biliary ductal dilatation stat us post cholecystectomy. There is no peripancreatic infiltration. Multiple subcentimeter renal lesion s are too small to characterize. There is no hydronephrosis. There is no evidence for a bowel obstruc tion. The appendix is normal. There is persistent sigmoid colon wall thickening which may extend to t he proximal rectum. This is been present on multiple prior exams. There is mild adjacent infiltration . Colonic diverticulosis is noted. There is no free air or abscess. 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 This contains fluid, as before. The appearance is unchanged since prior exam. No abdominal or pelvic lymphadenopathy is present. There are no suspicious osseous lesions. The appearance of the abd omen and pelvis is unchanged since CT of March 09, 2020. IMPRESSION: 1. No significant change since prior exam. Small hepatic lesions suggestive of metastases. Postopera tive findings within the liver. 2. No change in sigmoid colon wall thickening. This may reflect the primary tumor and could be correl ated with previous colonoscopy. Mild adjacent infiltration has been shown on prior exams. Therefore, acute diverticulitis is considered less likely but cannot be excluded. No abscess. Redemonstration of a colovesicular fistula, unchanged. 3. No bowel obstruction. ACT 112: Negative or not required by law. Electronically signed by: Mukesh Brewster M.D. 03/10/2020 7:58 PM
[2020-03-10] MEDS ORDERED: SODIUM CHLORIDE 0.9% 500 ML IV SCH (22:33)
[2020-03-10] MEDS ORDERED: NITROGLYCERIN SL 0.4 MG/TAB TAB SL PRN (22:33)
[2020-03-10] MEDS ORDERED: VANCOMYCIN HCL 1,000 MG in SODIUM CHLORIDE 0.9% 250 ML IV SCH (22:33)
[2020-03-10] MEDS ORDERED: PIPERACILL/TAZOBAC CONSULT ACTIVE PRN (22:33)
[2020-03-10] MEDS ORDERED: POTASSIUM CHLORIDE 20 MEQ/15 ML UDC PO STA (22:33)
[2020-03-10] MEDS ORDERED: VANCOMYCIN CONSULT ACTIVE PRN (22:33)
[2020-03-10] MEDS ORDERED: ONDANSETRON INJ 2 MG/ML 2 ML VIAL IV PRN (22:33)
[2020-03-10] MEDS ORDERED: MoRPHine SULFATE 4 MG/ML 1 ML CARP\\VIAL IV PRN (22:33)
[2020-03-10] MEDS ORDERED: PIPERACILLIN/TAZOBACTAM 3.375 GM in DEXTROSE 5% 100 ML IV SCH (23:00)
[2020-03-10] MEDS ORDERED: VANCOMYCIN HCL 2,000 MG in SODIUM CHLORIDE 0.9% 500 ML IV SCH (23:00)
[2020-03-10] MEDS ORDERED: PNEUMOCOCCAL ADMINISTRATION CHARGE ONE (23:32)
[2020-03-10] MEDS ORDERED: PNEUMOCOCCAL POLYSACCHARIDES 25 MCG/0.5 ML VIAL/SYR IM ONE (23:32)
--- NOTE | 2020-03-10 23:36 | History and Physical Report ---
DATE OF ADMISSION: 03/10/2020 CHIEF COMPLAINT: Abdominal pain and fever. HISTORY OF PRESENT ILLNESS: This is a 64-year-old male with past medical history significant for adenocarcinoma of rectosigmoid junction, status post surgery, status post chemo, last chemo was last Saturday. The patient follows with [facility]. Here he was admitted on 12/04/2019 with possible diverticulitis, abscess at sigmoid colon due to diverticulitis, treated with antibiotics, and discharged with oral p.o. antibiotics. The patient says today afternoon he had squeezing kind of pain in his abdomen and he had some fever and called his oncology and advised to come to the ER as was not feeling well at that time. In the ER, he had some mild temperature spike, he was tachycardic, and leukopenia. Lactic acid was 2.6 and CAT scan is showing again questionable acute diverticulitis, but no abscess at this time, and colovesical fistula unchanged. No bowel obstruction. Received cefepime and fluids. Currently resting comfortably, hemodynamically stable. He says the abdominal pain is better now, tachycardia is somewhat improving. Denies any other complaints. He had some mild headache, no dizziness, no blurred visions, no earache, no runny nose, no sore throat, no cough, no difficulty swallowing. Appetite is okay. No recent weight gain or weight loss. Sleeping okay. No difficulty swallowing, no chest pain, no shortness of breath. Denies any nausea or vomiting. He had one episode of small diarrhea, no blood in stools or black stools. Normal bladder movements. No hematuria. No swelling in the legs, no rash.No loss of smell or taste, no sick contacts, no recent travel. ALLERGIES: No known drug allergies. PAST MEDICAL HISTORY: As mentioned above. PAST SURGICAL HISTORY: Colonoscopy, dental surgery, vasectomy, A-port insertion, diagnostic laparoscopy, exploratory laparotomy, resection of segment 8 of the liver, cholecystectomy. MEDICATIONS: Krbj-Iubb-Xafm- water as directed. FAMILY HISTORY: Significant for mother has arthritis; father had cancer, diabetes, and heart disorder. SOCIAL HISTORY: and lives with his . Smoked an average of half pack a day for 20 years. Drinks 3 times a week. No drug use. REVIEW OF SYSTEMS: As per HPI. Rest of review of systems negative. PHYSICAL EXAMINATION: GENERAL: The patient is of moderate build, not in acute distress. VITAL SIGNS: Temperature 37.8, pulse 112, respiratory rate 14, blood pressure 107/67, oxygen 93% on room air. HEENT: No pallor, no icterus. Pupils equal, round, reactive to light. Extraocular muscles intact. NECK: No JVD, no neck masses, no carotid bruits. CARDIOVASCULAR: S1, S2 heard. Tachycardia. No murmurs. RESPIRATORY SYSTEM: Normal AP diameter. No accessory muscle use. No wheezing, no crackles. ABDOMEN: Soft, bowel sounds present, nontender. No distention. CENTRAL NERVOUS SYSTEM: Cranial nerves II-XII grossly intact, nonfocal. EXTREMITIES: No edema, no erythema. LABORATORY DATA: WBC 1.7, hemoglobin 13.7, hematocrit 41.6, platelets 140. PT 11, INR 1, APTT 20.7. Sodium 140, potassium 3.2, chloride 108, bicarbonate 23, BUN 19, creatinine 1.1, serum glucose 103, lactate 2.6, calcium 8.1, magnesium 1.6, total bilirubin 0.4, AST 27, ALT 27, alkaline phosphatase 139. Troponin I of 0.039, albumin 2.8. Urinalysis negative. Influenza A and B negative. IMAGING: Chest x-ray, no acute cardiopulmonary findings. CT of abdomen and pelvis, no significant change since prior exam, small hepatic lesions suggestive of metastases. Postoperative findings within the liver. No change in sigmoid colon wall thickening. This may reflect the primary tumor and could be correlated with the previous colonoscopy. Mild adjacent infiltration at the region of prior exams, therefore acute diverticulitis is considered less likely, but cannot be excluded. No abscess. Redemonstration of a colovesical fistula. No bowel obstruction. EKG: Sinus tachycardia at a rate of 138, no significant change was found. ASSESSMENT AND PLAN: This is a 64-year-old male with adenocarcinoma of colon, who presents with fever with sepsis. 1. Sepsis. Meets criteria for sepsis with tachycardia, fever, leukopenia, elevated lactic acid, source unclear recently, could be febrile neutropenia. Last chemo was last Saturday. Will treat with IV Zosyn and IV vancomycin. Questionable diverticulitis, will consult surgery. Follow the cultures. Follow the repeat lactic acid. IV fluids. Closely monitor in the tele floor. 2. Adenocarcinoma of colon, status post surgery, currently on chemo. Consult hematology/oncology. 3. Deep venous thrombosis prophylaxis, sequential compression devices. DISPOSITION: Closely monitor in the tele floor. Level 1 full code. MTDD
[2020-03-11] MEDS: SODIUM CHLORIDE 0.9% 1000ML 1,000 ML IV SCH ×4 (00:02→21:27)
[2020-03-11] MEDS: MAGNESIUM SULFATE / D5W 1 GM/100 ML BAG IV SCH ×2 (00:26→01:24)
[2020-03-11] MEDS: ACETAMINOPHEN 325 MG TAB PO PRN ×2 (03:35→07:43)
[2020-03-11] MEDS: PIPERACILLIN/TAZOBACTAM 3.375 GM in DEXTROSE 5% 100 ML IV SCH ×3 (05:37→21:25)
[2020-03-11 06:55] LABS: Hematocrit (blood only) 33.7 % (42-52); Mean Corpuscular Hemoglobin 28.2 pg (25-34); Mean Corpuscular Hgb Conc 32.6 g/dL (32-36); Mean Corpuscular Volume 86.4 fL (80-100); RDW Coefficient of Variation 19.5 % (11.5-14.5)
[2020-03-11 07:37] LABS: Eosinophils # (auto) 0.01 K/uL (0-0.5); Eosinophils % (auto) 0.5 %; Immature Granulocytes # (auto) 0.02 K/uL (0.00-0.02); Lymphocytes # (auto) 0.47 K/uL (1.2-3.4); Lymphocytes % (auto) 23.5 %; Mean Platelet Volume 9.5 fL (7.4-10.4); Monocytes # (auto) 0.04 K/uL (0.11-0.59); Neutrophils # (auto) 1.46 K/uL (1.4-6.5); Platelet Count 82 K/uL (130-400); Platelet Estimate Decreased (Normal)
[2020-03-11 07:38] LABS: BUN Creatinine Ratio 16.3 (10-20); Calcium 7.2 mg/dl (8.5-10.1); Est GFR (African American) 90.5; Est GFR (Non-African American) 78.1; Magnesium 2.2 mg/dl (1.8-2.4); Potassium 4.1 mmol/L (3.5-5.1)
--- NOTE | 2020-03-11 10:09 | Surgery Consultation ---
Date of Consultation March 11, 2020 Assessment & Plan (1) Abdominal pain: pt is a 64 year-old male who was admitted to hospital for abdominal pain, pt has adenocarcinoma of rectosigmoid junction, pt had liver surgery with cholecystectomy in05/2019. pt is on chemotherapy for his colon cancer, IMP: colon cancer with diverticulitis, Plan, no emergent surgery indication now, agree with conservative treatment, IV antibiotic, pt F/U his Jessica colon-rectal surgery for his colon cancer, distribution agent surgeon will cover this weekend. pt agrees with the treatment plan,I answered all questions, (2) Adenocarcinoma of rectosigmoid junction: History of Present Illness Attending Physician: Denia Chilel MD CHIEF COMPLAINT: Abdominal pain and fever. HISTORY OF PRESENT ILLNESS: This is a 64-year-old male with past medical history significant for adenocarcinoma of rectosigmoid junction, status post surgery, status post chemo, last chemo was last Saturday. The patient follows with [facility]. Here he was admitted on 12/04/2019 with possible diverticulitis, abscess at sigmoid colon due to diverticulitis, treated with antibiotics, and discharged with oral p.o. antibiotics. The patient says today afternoon he had squeezing kind of pain in his abdomen and he had some fever and called his oncology and advised to come to the ER as was not feeling well at that time. In the ER, he had some mild temperature spike, he was tachycardic, and leukopenia. Lactic acid was 2.6 and CAT scan is showing again questionable acute diverticulitis, but no abscess at this time, and colovesical fistula unchanged. No bowel obstruction. Received cefepime and fluids. Currently resting comfortably, hemodynamically stable. He says the abdominal pain is better now, tachycardia is somewhat improving. Denies any other complaints. He had some mild headache, no dizziness, no blurred visions, no earache, no runny nose, no sore throat, no cough, no difficulty swallowing. Appetite is okay. No recent weight gain or weight loss. Sleeping okay. No difficulty swallowing, no chest pain, no shortness of breath. Denies any nausea or vomiting. He had one episode of small diarrhea, no blood in stools or black stools. Normal bladder movements. No hematuria. No swelling in the legs, no rash.No loss of smell or taste, no sick contacts, no recent travel. I ( Vivian Church MD) got a call for consult diverticulitis, I reviewed pt's H/P, labs, CT scan with pt, pt feels better, less abdominal pain, no nausea, no vomiting, no fever, ALLERGIES: No known drug allergies. PAST MEDICAL HISTORY: As mentioned above. PAST SURGICAL HISTORY: Colonoscopy, dental surgery, vasectomy, A-port insertion, diagnostic laparoscopy, exploratory laparotomy, resection of segment 8 of the liver, cholecystectomy. MEDICATIONS: Vtbt-Czxa-Hrwp- water as directed. FAMILY HISTORY: Significant for mother has arthritis; father had cancer, diabetes, and heart disorder. SOCIAL HISTORY: and lives with his . Smoked an average of half pack a day for 20 years. Drinks 3 times a week. No drug use. REVIEW OF SYSTEMS: As per HPI. Rest of review of systems negative. PHYSICAL EXAMINATION: GENERAL: The patient is of moderate build, not in acute distress. VITAL SIGNS: Temperature 37.8, pulse 112, respiratory rate 14, blood pressure 107/67, oxygen 93% on room air. HEENT: No pallor, no icterus. Pupils equal, round, reactive to light. Extraocular muscles intact. NECK: No JVD, no neck masses, no carotid bruits. CARDIOVASCULAR: S1, S2 heard. Tachycardia. No murmurs. RESPIRATORY SYSTEM: Normal AP diameter. No accessory muscle use. No wheezing, no crackles. ABDOMEN: Soft, bowel sounds present, nontender. No distention. CENTRAL NERVOUS SYSTEM: Cranial nerves II-XII grossly intact, nonfocal. EXTREMITIES: No edema, no erythema. LABORATORY DATA: WBC 1.7, hemoglobin 13.7, hematocrit 41.6, platelets 140. PT 11, INR 1, APTT 20.7. Sodium 140, potassium 3.2, chloride 108, bicarbonate 23, BUN 19, creatinine 1.1, serum glucose 103, lactate 2.6, calcium 8.1, magnesium 1.6, total bilirubin 0.4, AST 27, ALT 27, alkaline phosphatase 139. Troponin I of 0.039, albumin 2.8. Urinalysis negative. Influenza A and B negative. IMAGING: Chest x-ray, no acute cardiopulmonary findings. CT of abdomen and pelvis, no significant change since prior exam, small hepatic lesions suggestive of metastases. Postoperative findings within the liver. No change in sigmoid colon wall thickening. This may reflect the primary tumor and could be correlated with the previous colonoscopy. Mild adjacent infiltration at the region of prior exams, therefore acute diverticulitis is considered less likely, but cannot be excluded. No abscess. Redemonstration of a colovesical fistula. No bowel obstruction. 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 Other Information That Helps Us Care for You: No Feels Safe at Home: Yes Safety Concerns: Afraid for Self Smoking Status: Unknown if ever smoked Hx Alcohol Use: No Hx Substance Use: No caffeine: Yes (2 cups of coffee/day ) Dental Care, Regularly: Yes Review of Systems Review of Systems: All systems reviewed & are unremarkable except as noted in HPI & below Constitutional: as per Subjective / HPI Eyes: as per Subjective / HPI Ear, Nose, Mouth, Throat: as per Subjective / HPI Respiratory: as per Subjective / HPI Cardiovascular: as per Subjective / HPI Gastrointestinal: adenocarcinoma of rectosigmoid junction, Genitourinary: + as per Subjective / HPI Musculoskeletal: as per Subjective / HPI Integumentary: as per Subjective / HPI Neurologic: as per Subjective / HPI Psychiatric: as per Subjective / HPI Endocrine: as per Subjective / HPI Hematologic / Lymphatic: as per Subjective / HPI Allergy / Immunological: as per Subjective / HPI Physical Exam Constitutional: WD/WN, vitals as above well developed and well nourished Eyes: PERRL, conjunctivae normal, anicteric sclerae ENMT: external ear and nose normal, oropharynx normal Neck: trachea midline, no thyromegaly Respiratory: normal respiratory effort, lungs clear to auscultation normal respiratory effort Cardiovascular: Rate/Rhythm: regular rate and regular rhythm Heart Sounds: normal S1 and normal S2 Gastrointestinal (Abdomen): normal bowel sounds, soft, nontender, no h epatosplenomegaly Percussion/Palpation: + abdomen tender soft, mild tenderness at RLQ area, no rebound pain, BS +. no distend Musculoskeletal: no cyanosis or clubbing, extremities motor strength 5/5 Skin: no rashes, warm and dry Neurologic: patellar DTR's 2+ bilat, sensation intact Psychiatric: Orientation: alert and oriented x 3 Results & Data Vital Signs (Past 12 Hours) Vital Signs Temp Pulse Pulse Resp BP BP Pulse Ox 03/11/20 07:10 36.8 C 79 22 148/79 H 96 03/11/20 03:26 37.7 C H 82 20 135/68 98 03/10/20 23:36 37.1 C 81 18 116/67 96 03/10/20 22:54 37.3 C 87 18 120/71 96 Laboratory Results Abnormal lab results 03/10/20 03/10/20 03/10/20 Range/Units 18:25 18:25 18:25 WBC 1.73 L (4.8-10.8) K/uL RBC (4.7-6.1) M/uL Hgb 13.7 L (14.0-18.0) g/dL POC Hgb (14.0-18.0) g/dl Hct 41.6 L (42-52) % POC Hct (42-52) % RDW Std Deviation 59.6 H (36.4-46.3) fL RDW Coeff of Raquel 19.1 H (11.5-14.5) % Plt Count (130-400) K/uL Neut # (Auto) 1.39 L (1.4-6.5) K/uL Lymph # (Auto) 0.30 L (1.2-3.4) K/uL Pima # (Auto) 0.01 L (0.11-0.59) K/uL Platelet Estimate (Normal) APTT 20.7 L (21.0-31.0) Seconds POC Potassium (3.3-5.0) mmol/L Potassium 3.2 L (3.5-5.1) mmol/L Chloride 108 H (98-107) mmol/L POC Total CO2 (24-31) mmol/L BUN 19 H (7-18) mg/dl Glucose 103 H (70-99) mg/dl Lactate (0.4-2.0) mmol/L Calcium 8.1 L (8.5-10.1) mg/dl POC Ioniz Calcium Yefri (1.12-1.32) mmol/l Magnesium 1.6 L (1.8-2.4) mg/dl Alkaline Phosphatase 139 H (45-117) U/L Albumin 2.8 L (3.4-5.0) gm/dl Albumin/Globulin Ratio 0.8 L (0.9-2) Urine Protein (Negative) U Epithel Cells (Auto) (0-5) /lpf 03/10/20 03/10/20 03/10/20 Range/Units 18:25 18:30 18:51 WBC (4.8-10.8) K/uL RBC (4.7-6.1) M/uL Hgb (14.0-18.0) g/dL POC Hgb 12.9 L (14.0-18.0) g/dl Hct (42-52) % POC Hct 38 L (42-52) % RDW Std Deviation (36.4-46.3) fL RDW Coeff of Raquel (11.5-14.5) % Plt Count (130-400) K/uL Neut # (Auto) (1.4-6.5) K/uL Lymph # (Auto) (1.2-3.4) K/uL Pima # (Auto) (0.11-0.59) K/uL Platelet Estimate (Normal) APTT (21.0-31.0) Seconds POC Potassium 3.0 L (3.3-5.0) mmol/L Potassium (3.5-5.1) mmol/L Chloride (98-107) mmol/L POC Total CO2 22 L (24-31) mmol/L BUN (7-18) mg/dl Glucose (70-99) mg/dl Lactate 2.6 H* (0.4-2.0) mmol/L Calcium (8.5-10.1) mg/dl POC Ioniz Calcium Yefri 1.04 L (1.12-1.32) mmol/l Magnesium (1.8-2.4) mg/dl Alkaline Phosphatase (45-117) U/L Albumin (3.4-5.0) gm/dl Albumin/Globulin Ratio (0.9-2) Urine Protein Trace H (Negative) U Epithel Cells (Auto) 5-10 H (0-5) /lpf 03/10/20 03/11/20 03/11/20 Range/Units 20:17 06:43 06:43 WBC 2.00 L (4.8-10.8) K/uL RBC 3.90 L (4.7-6.1) M/uL Hgb 11.0 L (14.0-18.0) g/dL POC Hgb (14.0-18.0) g/dl Hct 33.7 L (42-52) % POC Hct (42-52) % RDW Std Deviation 61.0 H (36.4-46.3) fL RDW Coeff of Raquel 19.5 H (11.5-14.5) % Plt Count 82 L (130-400) K/uL Neut # (Auto) (1.4-6.5) K/uL Lymph # (Auto) 0.47 L (1.2-3.4) K/uL Pima # (Auto) 0.04 L (0.11-0.59) K/uL Platelet Estimate Decreased L (Normal) APTT (21.0-31.0) Seconds POC Potassium (3.3-5.0) mmol/L Potassium (3.5-5.1) mmol/L Chloride 113 H (98-107) mmol/L POC Total CO2 (24-31) mmol/L BUN (7-18) mg/dl Glucose (70-99) mg/dl Lactate 2.6 H* (0.4-2.0) mmol/L Calcium 7.2 L (8.5-10.1) mg/dl POC Ioniz Calcium Yefri (1.12-1.32) mmol/l Magnesium (1.8-2.4) mg/dl Alkaline Phosphatase (45-117) U/L Albumin (3.4-5.0) gm/dl Albumin/Globulin Ratio (0.9-2) Urine Protein (Negative) U Epithel Cells (Auto) (0-5) /lpf Diagnostic Findings CT OF THE ABDOMEN AND PELVIS WITH CONTRAST CLINICAL HISTORY: Abdominal pain, fever, tachycardia. Rectal cancer. COMPARISON STUDY: CT of the abdomen and pelvis March 09, 2020. TECHNIQUE: Following IV administration of 91 mL of Optiray-320, axial images of the abdomen and pelvis were obtained from the lung bases to the proximal femurs. Images were reviewed in the axial, sagittal, and coronal planes. IV contrast was administered without complication. Automated exposure control was utilized for the study. A dose lowering technique was utilized adhering to the principles of ALARA. CT DOSE: 820.78 mGycm FINDINGS: Lung bases are unremarkable. Postoperative findings within the liver are unchanged in appearance since prior exam. Several small hepatic lesions measure up to 1 cm are also unchanged. The spleen, adrenal glands, kidneys and pancreas are unremarkable. There is no biliary ductal dilatation status post cholecystectomy. There is no peripancreatic infiltration. Multiple subcentimeter renal lesions are too small to characterize. There is no hydronephrosis. There is no evidence for a bowel obstruction. The appendix is normal. There is persistent sigmoid colon wall thickening which may extend to the proximal rectum. This is been present on multiple prior exams. There is mild adjacent infiltration. Colonic diverticulosis is noted. There is no free air or abscess. 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 This contains fluid, as before. The appearance is unchanged since prior exam. No abdominal or pelvic lymphadenopathy is present. There are no suspicious osseous lesions. The appearance of the abdomen and pelvis is unchanged since CT of March 09, 2020. IMPRESSION: 1. No significant change since prior exam. Small hepatic lesions suggestive of metastases. Postoperative findings within the liver. 2. No change in sigmoid colon wall thickening. This may reflect the primary tumor and could be correlated with previous colonoscopy. Mild adjacent infiltration has been shown on prior exams. Therefore, acute diverticulitis is considered less likely but cannot be excluded. No abscess. Redemonstration of a colovesicular fistula, unchanged. 3. No bowel obstruction. (1) Abdominal pain Abdominal location: unspecified location Qualified Code(s): R10.9 - Unspecified abdominal pain
--- NOTE | 2020-03-11 11:08 | Consultation Report ---
DATE OF CONSULTATION: 03/11/2020 REASON FOR CONSULTATION: A 64-year-old gentleman with history of metastatic colorectal cancer admitted with low-grade fever on 03/10/2020. HISTORY OF PRESENT ILLNESS: Mr. Avila is a pleasant 64-year-old gentleman well known to [facility], currently under Dr. Brennan's care for metastatic colorectal cancer. The patient is presently receiving FOLFIRI and Avastin, which was last administered this past Saturday. He presented on 03/10/2020 with squeezing kind of pain in his abdomen with low grade fever, called Dr. Brennan and advised him to come to the Emergency Room. In the Emergency Room, his temperature was indeed elevated, tachycardic and leukopenic. CAT scan showed questionable diverticulitis, but no abscess present. The colovesical fistula is unchanged. He was given vigorous IV fluids and dosed with cefepime. One blood culture is positive for gram-negative bacilli. This gentleman had a urinary tract infection with E. coli back in November. He is feeling better since admission and offers no specific complaints. Mr. Avila was originally diagnosed with stage IV colorectal cancer (T4b, N0, M1) with isolated hepatic metastasis in January of 2019. He received 6 cycles of FOLFOX from 03/02/2019 through 05/25/2019. In June 2019, underwent exploratory laparotomy with intraoperative ultrasound, revealed only the known liver metastasis and underwent anatomic resection of segment 8 of the liver. The pathology was consistent with metastatic colorectal cancer. After which he received 4 cycles of FOLFOX through 09/28/2019 with oxaliplatin held due to toxicity. He then continued to receive 5-FU, leucovorin and Avastin until 10/26/2019, was held in preparation for possible surgery. Preoperative scans in November unfortunately revealed progressive disease in lung and liver and began FOLFIRI and Avastin, which he receives currently. PAST MEDICAL HISTORY: Again, significant for metastatic colorectal cancer. He has no history of coronary artery disease, diabetes or thyroid disease. PAST SURGICAL HISTORY: Colonoscopy, dental surgery, vasectomy, MediPort insertion, diagnostic laparoscopy, exploratory laparotomy, resection of segment of the liver, cholecystectomy. CURRENT MEDICATIONS: ___ mist water as directed. ALLERGIES: No known drug allergies. FAMILY HISTORY: Significant for osteoarthritis on his mother's side. Father suffered from undisclosed cancer, diabetes mellitus and heart disorder. SOCIAL HISTORY: The patient is and lives with his . Smoked a half pack of cigarettes x20 years. Drinks at least 3 times weekly. No illicit drug use. REVIEW OF SYSTEMS: GENERAL: Positive for fatigue, asthenia, low-grade fever. SKIN: No rashes or lesions. He has no history of dermatoses. HEENT: Denies headaches, lightheadedness or dizziness. No visual or hearing deficits. No sinus symptoms, sore throat or dysphagia. LYMPH: No history of lymphoproliferative disease. CARDIAC: Negative for angina or palpitations. No history of coronary artery disease. PULMONARY: Negative for shortness of breath, dyspnea or orthopnea. No cough or hemoptysis. GASTROINTESTINAL: Negative for abdominal pain, nausea, vomiting, diarrhea or constipation at present. No hematochezia, melena or berhane rectal bleeding. GENITOURINARY: Denies any hematuria or dysuria; however, had suffered from urinary tract infection in November of this year (E. coli). MUSCULOSKELETAL: No arthralgias or myalgias. No focal muscle weakness. ENDOCRINE: Negative for diabetes or thyroid disease. NEUROLOGIC: Negative for seizure, stroke, or migraine headache. HEMATOLOGIC: Negative for anemia, thrombophilia or bleeding diathesis. Positive for treatment-induced anemia and leukopenia. Positive for mild thrombocytopenia, all most likely attributable to ongoing treatment. PHYSICAL EXAMINATION: Very pleasant 64-year-old gentleman, awake, alert and appropriate, in no acute distress. VITAL SIGNS: Temperature 36.8, pulse 79, respiratory rate 20, blood pressure 148/79. SKIN: Warm, dry, noncyanotic without petechia, rash or ecchymosis. HEENT: Head is atraumatic, normocephalic. Eyes PERRLA, EOMI. Sclerae nonicteric. No conjunctival injection. Nares are patent without rhinorrhea or discharge. Throat is clear. Tongue is midline. Mucous membranes are moist. NECK: Supple without JVD or thyromegaly. LYMPHATICS: No cervical, supraclavicular, axillary or inguinal palpable nodes. HEART: Regular rate and rhythm. No clicks, rubs, murmurs or gallops. LUNGS: Clear to auscultation bilaterally. ABDOMEN: Soft, nontender, nondistended, without palpable hepatosplenomegaly. No rigidity or guarding. EXTREMITIES: No clubbing, cyanosis or edema. MUSCULOSKELETAL: Strength and pulses are equal in all 4 quadrants. NEUROLOGICALLY: He is awake, alert and oriented x3. No gross motor or sensory deficits are present. Cranial nerves grossly intact. LABORATORY DATA: WBC count 2000, hemoglobin 11, platelet count 82,000. Neutrophil count 1460, PTT 20.7 seconds, PT 11. Sodium 140, potassium 4.1, chloride 113, carbon dioxide 21, creatinine 1, BUN 16. Ionized calcium 1.04, alkaline phosphatase 139, albumin 2.8. UA unremarkable. Microbiology: Blood culture x1 positive for gram-negative bacilli. RADIOGRAPHIC DATA: CT scan of the abdomen and pelvis done on admission, no significant change since prior examination. Small hepatic lesions suggesting metastatic disease. No change in sigmoid colon wall thickening. There is no evidence for bowel obstruction. IMPRESSION: 1. Low grade fever. 2. Gram-negative bacteremia. 3. Hypoalbuminemia. 4. Metastatic colorectal cancer, currently on FOLFIRI and Avastin. PLAN: I have been asked to see Mr. Avila who was admitted yesterday with low grade fever and appeared to have gram-negative bacteremia. There was E. coli in the urine couple of months prior and suspect the same organism is now in his blood. We will await formal identification however. Obviously, continue appropriate antibiotics and target to confirm the pathogen when available. May need to consider removing this gentleman's MediPort which is no longer working and we will need to provide either central line or perhaps a PICC line so he can move forward with treatment once medically stable. Suspect he will be hospitalized for a few more days. We will make sure he has appropriate followup to stay on course with his current treatment. I have nothing further to add at this time and will continue to periodically follow Mr. Avila during his stay. Thank you very much for allowing me to participate in his care. NERIS
--- NOTE | 2020-03-11 11:30 | Hospitalist Progress Note ---
Date of Service March 11, 2020 Assessment & Plan (1) Sepsis: (2) Abdominal pain: Sepsis with tachycardia, fever, elevated lactic acid, pancytopenia Source likely GI Abdominal CT findings noted. Possible diverticulitis Gram-negative bacilli on blood cultures Continue Zosyn Follow-up blood culture results speciation and sensitivities Lactic acid was 2.6 on admission, trended down to 2 Surgical consult noted (3) Pancytopenia: Patient is pancytopenic. This is likely related to chemo therapy. Last chemo was last Saturday Also sepsis can contribute to this Absolute neutrophil count today is 1.46K/uL Continue to monitor CBC with differential (4) Adenocarcinoma of rectosigmoid junction: status post surgery, currently on chemo. Dr Stevens recommendations noted (5) DVT prophylaxis: SCD and ambulate for now Admission and Anticipated Discharge Date Admission Date: March 10, 2020 Subjective Patient seen and examined. Still reports abdominal pain though improved, right sided, squeezing in nature, not referred. Denied any nausea, vomiting, diarrhea Denied chills Denied dysuria, freq, urgency, hematuria Denied chest pain, cough, shortness of breath Reports headache Physical Exam Constitutional: + well hydrated; no acute distress Eyes: PERRL, conjunctivae normal, anicteric sclerae ENMT: external ear and nose normal, oropharynx normal Respiratory: normal respiratory effort, lungs clear to auscultation Cardiovascular: RRR, no murmur, no edema Gastrointestinal (Abdomen): normal bowel sounds, soft, nontender, no hepatosplenomegaly Musculoskeletal: no cyanosis or clubbing, extremities motor strength 5/5 Neurologic: PERRL, EOMI, accommodation nl, no face palsy, no dysarthria Psychiatric: A+Ox3, euthymic affect Results & Data Results & Data ([facility]) Vital Signs (Past 12 Hours) Vital Signs Temp Pulse Pulse Resp BP BP Pulse Ox 03/11/20 11:20 36.7 C 72 17 142/81 H 95 03/11/20 07:10 36.8 C 79 22 148/79 H 96 03/11/20 03:26 37.7 C H 82 20 135/68 98 03/10/20 23:36 37.1 C 81 18 116/67 96 Laboratory Results Short CBC 03/10/20 03/11/20 Range/Units 18:25 06:43 WBC 1.73 L 2.00 L (4.8-10.8) K/uL Hgb 13.7 L 11.0 L (14.0-18.0) g/dL Hct 41.6 L 33.7 L (42-52) % Plt Count 140 82 L (130-400) K/uL BMP 03/10/20 03/11/20 18:25 06:43 Sodium 140 140 Potassium 3.2 L 4.1 D Chloride 108 H 113 H Carbon Dioxide 23 21 BUN 19 H 16 Creatinine 1.17 1.00 Glucose 103 H 90 Calcium 8.1 L 7.2 L Cardiac Enzymes 03/10/20 Range/Units 18:25 Troponin I 0.039 (0-0.045) ng/ml Liver Function 03/10/20 Range/Units 18:25 Total Bilirubin 0.4 (0.2-1) mg/dl AST 27 (15-37) U/L ALT 27 (12-78) U/L Alkaline Phosphatase 139 H (45-117) U/L Albumin 2.8 L (3.4-5.0) gm/dl Urine 03/10/20 Range/Units 18:30 Urine Color Yellow Urine Appearance Clear (Clear) Urine pH 5.0 (4.5-7.5) Ur Specific Dale 1.016 (1.000-1.030) Urine Protein Trace H (Negative) Urine Glucose (UA) Negative (Negative) (1) Abdominal pain Abdominal location: unspecified location Qualified Code(s): R10.9 - Unspecified abdominal pain
--- NOTE | 2020-03-11 16:30 | Electrocardiogram Report ---
Test Reason : Blood Pressure : / mmHG Vent. Rate : 138 BPM Atrial Rate : 138 BPM P-R Int : 138 ms QRS Dur : 080 ms QT Int : 292 ms P-R-T Axes : 035 030 029 degrees QTc Int : 442 ms Sinus tachycardia Otherwise normal ECG When compared with ECG of 03-DEC-2019 20:32, No significant change was found Confirmed by Ney Gregorio ([id number]) on 03/11/2020 4:29:33 PM Referred By: REFERRED SELF Confirmed By:Ney Gregorio
[2020-03-12] MEDS ORDERED: HEPARIN 100 UNIT/ML 5ML FLUSH FLUSH PRN (00:40)
[2020-03-12] MEDS: TRAMADOL/ACETAMINOPHEN 37.5/325MG TAB PO PRN ×2 (01:05→08:45)
[2020-03-12 04:33] LABS: Hematocrit (blood only) 34.1 % (42-52); Hemoglobin 11.1 g/dL (14.0-18.0); Mean Corpuscular Hgb Conc 32.6 g/dL (32-36); Mean Corpuscular Volume 85.9 fL (80-100); RDW Standard Deviation 59.6 fL (36.4-46.3); Red Blood Count 3.97 M/uL (4.7-6.1); White Blood Count 2.65 K/uL (4.8-10.8)
[2020-03-12 04:34] LABS: Mean Platelet Volume 9.9 fL (7.4-10.4); Platelet Count 82 K/uL (130-400)
[2020-03-12 04:51] LABS: BUN Creatinine Ratio 12.2 (10-20); Calcium 7.4 mg/dl (8.5-10.1); Creatinine Clr Calc Pharmacy 68.8 ml/min; Est GFR (African American) 81.5; Est GFR (Non-African American) 70.4; Potassium 3.9 mmol/L (3.5-5.1)
[2020-03-12] MEDS: PIPERACILLIN/TAZOBACTAM 3.375 GM in DEXTROSE 5% 100 ML IV SCH ×3 (05:27→21:45)
[2020-03-12] MEDS: SODIUM CHLORIDE 0.9% 1000ML 1,000 ML IV SCH ×3 (05:27→21:48)
--- NOTE | 2020-03-12 09:42 | Surgery Progress Note ---
Date of Service March 12, 2020 Assessment & Plan (1) Sepsis: 64-year-old male with neutropenic fever on chemotherapy for metastatic colon cancer. Abdominal discomfort improved. Source may be from colovesical fistula but at this point the patient is high risk for surgery and no acute surgical intervention is indicated. He should follow-up with his colorectal surgeon and oncologist. No surgical intervention indicated at this time Continue to treat with antibiotics, patient may need prophylactic antibiotics as an outpatient if it is believed that this emanated from UTI secondary to colovesical fistula Follow-up with colorectal surgeons and oncologist at [facility] will follow peripherally, call with questions or concerns Subjective 64-year-old male on chemotherapy for metastatic colon cancer with known history of diverticulitis and colovesicular fistula, admitted with neutropenic fever. Blood cultures show E. coli. Overall he is feeling better and has no abdominal pain. Physical Exam Constitutional: WD/WN, vitals as above Gastrointestinal (Abdomen): normal bowel sounds, soft, nontender, no hepatosplenomegaly Results & Data Vital Signs (Past 12 Hours) Vital Signs Temp Pulse Resp BP BP Pulse Ox 03/12/20 07:23 36.5 C 73 19 159/92 H 97 03/12/20 03:57 36.7 C 67 18 144/77 H 96 03/11/20 23:58 37.3 C 94 H 18 178/91 H 95 Laboratory Results Laboratory Results - last 24 hr 03/12/20 03/12/20 04:12 04:12 WBC 2.65 L RBC 3.97 L Hgb 11.1 L Hct 34.1 L MCV 85.9 MCH 28.0 MCHC 32.6 RDW Std Deviation 59.6 H RDW Coeff of Raquel 19.0 H Plt Count 82 L MPV 9.9 Sodium 140 Potassium 3.9 Chloride 114 H Carbon Dioxide 21 Anion Gap 5.0 BUN 13 Creatinine 1.09 Est Cr Clr Drug Dosing 68.8 Est GFR ( Amer) 81.5 Est GFR (Non-Af Amer) 70.4 BUN/Creatinine Ratio 12.2 Glucose 97 Calcium 7.4 L PG Care Time/CCT Total # of Minutes Spent Total Time Spent with Patient: Total time spent is greater than 50% in coordination of care (as documented) at patient's floor/unit and/or counseling patient: Coding Level of Care Code 12208 Inpt Consult Level 3 Diagnoses Sepsis A41.9
--- NOTE | 2020-03-12 10:34 | Hospitalist Progress Note ---
Date of Service March 12, 2020 Assessment & Plan (1) Sepsis: (2) Abdominal pain: Sepsis with tachycardia, fever, elevated lactic acid, pancytopenia Source likely GI Abdominal CT findings noted. Possible diverticulitis Gram-negative bacilli on blood cultures Continue Zosyn Follow-up blood culture results speciation and sensitivities Lactic acid was 2.6 on admission, trended down to 2 Surgical consult noted If diarrhea persists, get c. diff Continue pain control (3) Pancytopenia: Patient is pancytopenic. This is likely related to chemo therapy. 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 Dr Stevens recommendations noted (5) DVT prophylaxis: SCD and ambulate for now Admission and Anticipated Discharge Date Admission Date: March 10, 2020 Subjective Patient seen and examined Reports abd pain is improving. Reports headache is better controlled this morning Denied nausea, vomiting Reports diarrhea 3x yesterday and 2x today. Reports stool consistency varies. Denied any hematochezia, melena, BRBPR Denied any cough, chest pain, SOB Physical Exam Constitutional: + well hydrated; no acute distress Eyes: PERRL, conjunctivae normal, anicteric sclerae ENMT: external ear and nose normal, oropharynx normal Respiratory: normal respiratory effort, lungs clear to auscultation Cardiovascular: RRR, no murmur, no edema Gastrointestinal (Abdomen): normal bowel sounds, soft, nontender, no hepatosplenomegaly Musculoskeletal: no cyanosis or clubbing, extremities motor strength 5/5 Neurologic: PERRL, EOMI, accommodation nl, no face palsy, no dysarthria Psychiatric: A+Ox3, euthymic affect Results & Data Results & Data ([facility]) Vital Signs (Past 12 Hours) Vital Signs Temp Pulse Pulse Resp BP BP Pulse Ox 03/12/20 09:00 63 03/12/20 07:23 36.5 C 73 19 159/92 H 97 03/12/20 03:57 36.7 C 67 18 144/77 H 96 03/11/20 23:58 37.3 C 94 H 18 178/91 H 95 Laboratory Results Short CBC 03/12/20 Range/Units 04:12 WBC 2.65 L (4.8-10.8) K/uL Hgb 11.1 L (14.0-18.0) g/dL Hct 34.1 L (42-52) % Plt Count 82 L (130-400) K/uL [facility] 03/12/20 04:12 Sodium 140 Potassium 3.9 Chloride 114 H Carbon Dioxide 21 BUN 13 Creatinine 1.09 Glucose 97 Calcium 7.4 L (1) Abdominal pain Abdominal location: unspecified location Qualified Code(s): R10.9 - Unspecified abdominal pain
[2020-03-13] MEDS: SODIUM CHLORIDE 0.9% 1000ML 1,000 ML IV SCH (05:42)
[2020-03-13] MEDS: PIPERACILLIN/TAZOBACTAM 3.375 GM in DEXTROSE 5% 100 ML IV SCH (05:42)
[2020-03-13 05:58] LABS: Hematocrit (blood only) 33.5 % (42-52); Mean Corpuscular Hemoglobin 27.9 pg (25-34); Mean Corpuscular Hgb Conc 32.8 g/dL (32-36); RDW Coefficient of Variation 18.9 % (11.5-14.5); RDW Standard Deviation 59.4 fL (36.4-46.3); Red Blood Count 3.94 M/uL (4.7-6.1)
[2020-03-13 06:23] LABS: Mean Platelet Volume 9.5 fL (7.4-10.4); Platelet Count 87 K/uL (130-400)
[2020-03-13 06:34] LABS: BUN Creatinine Ratio 14.1 (10-20); Creatinine Clr Calc Pharmacy 84.3 ml/min; Est GFR (African American) 103.3; Est GFR (Non-African American) 89.1
[2020-03-13 11:27] VITALS: TEMP 97.2; O2SAT 99
--- NOTE | 2020-03-13 11:54 | Discharge Summary ---
Date of Service March 13, 2020 Admission HPI Per Admitting Provider 64-year-old male with past medical history significant for adenocarcinoma of rectosigmoid junction, status post surgery, status post chemo, last chemo was last Saturday. The patient follows with [facility]. Here he was admitted on 12/04/2019 with possible diverticulitis, abscess at sigmoid colon due to diverticulitis, treated with antibiotics, and discharged with oral p.o. antibiotics. The patient says today afternoon he had squeezing kind of pain in his abdomen and he had some fever and called his oncology and advised to come to the ER as was not feeling well at that time. In the ER, he had some mild temperature spike, he was tachycardic, and leukopenia. Lactic acid was 2.6 and CAT scan is showing again questionable acute diverticulitis, but no abscess at this time, and colovesical fistula unchanged. No bowel obstruction. Received cefepime and fluids. Currently resting comfortably, hemodynamically stable. He says the abdominal pain is better now, tachycardia is somewhat improving. Denies any other complaints. He had some mild headache, no dizziness, no blurred visions, no earache, no runny nose, no sore throat, no cough, no difficulty swallowing. Appetite is okay. No recent weight gain or weight loss. Sleeping okay. No difficulty swallowing, no chest pain, no shortness of breath. Denies any nausea or vomiting. He had one episode of small diarrhea, no blood in stools or black stools. Normal bladder movements. No hematuria. No swelling in the legs, no rash.No loss of smell or taste, no sick contacts, no recent travel. Admission Exam Per Admitting Provider GENERAL: The patient is of moderate build, not in acute distress. VITAL SIGNS: Temperature 37.8, pulse 112, respiratory rate 14, blood pressure 107/67, oxygen 93% on room air. HEENT: No pallor, no icterus. Pupils equal, round, reactive to light. Extraocular muscles intact. NECK: No JVD, no neck masses, no carotid bruits. CARDIOVASCULAR: S1, S2 heard. Tachycardia. No murmurs. RESPIRATORY SYSTEM: Normal AP diameter. No accessory muscle use. No wheezing, no crackles. ABDOMEN: Soft, bowel sounds present, nontender. No distention. CENTRAL NERVOUS SYSTEM: Cranial nerves II-XII grossly intact, nonfocal. EXTREMITIES: No edema, no erythema. Principal Diagnosis E. coli sepsis Abdominal pain Pancytopenia Discharge Exam Constitutional + well hydrated; no acute distress Eyes PERRL, conjunctivae normal, anicteric sclerae ENMT external ear and nose normal, oropharynx normal Respiratory normal respiratory effort, lungs clear to auscultation Cardiovascular RRR, no murmur, no edema Gastrointestinal (Abdomen) normal bowel sounds, soft, nontender, no hepatosplenomegaly Musculoskeletal no cyanosis or clubbing, extremities motor strength 5/5 Neurologic PERRL, EOMI, accommodation nl, no face palsy, no dysarthria Psychiatric A+Ox3, euthymic affect Discharge Data Allergies Allergy/AdvReac Type Severity Reaction Status Date / Time No Known Allergies Allergy nka Verified 03/10/20 20:35 Consultations 03/10/20 20:04 ED Decision to Admit Stat 03/10/20 22:33 Consult Case Management - Discharge Planning Routine 03/11/20 08:00 Consult General Surgery Routine Consult Hematology Routine Ordered Studies 03/10/20 18:08 CT abd pelvis IV con only Stat CT OF THE ABDOMEN AND PELVIS WITH CONTRAST CLINICAL HISTORY: Abdominal pain, fever, tachycardia. Rectal cancer. COMPARISON STUDY: CT of the abdomen and pelvis March 09, 2020. TECHNIQUE: Following IV administration of 91 mL of Optiray-320, axial images of the abdomen and pelvis were obtained from the lung bases to the proximal femurs. Images were reviewed in the axial, sagittal, and coronal planes. IV contrast was administered without complication. Automated exposure control was utilized for the study. A dose lowering technique was utilized adhering to the principles of ALARA. CT DOSE: 820.78 mGycm FINDINGS: Lung bases are unremarkable. Postoperative findings within the liver are unchanged in appearance since prior exam. Several small hepatic lesions measure up to 1 cm are also unchanged. The spleen, adrenal glands, kidneys and pancreas are unremarkable. There is no biliary ductal dilatation status post cholecystectomy. There is no peripancreatic infiltration. Multiple subcentimeter renal lesions are too small to characterize. There is no hydronephrosis. There is no evidence for a bowel obstruction. The appendix is normal. There is persistent sigmoid colon wall thickening which may extend to the proximal rectum. This is been present on multiple prior exams. There is mild adjacent i nfiltration. Colonic diverticulosis is noted. There is no free air or abscess. 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 This contains fluid, as before. The appearance is unchanged since prior exam. No abdominal or pelvic lymphadenopathy is present. There are no suspicious osseous lesions. The appearance of the abdomen and pelvis is unchanged since CT of March 09, 2020. IMPRESSION: 1. No significant change since prior exam. Small hepatic lesions suggestive of metastases. Postoperative findings within the liver. 2. No change in sigmoid colon wall thickening. This may reflect the primary tumo r and could be correlated with previous colonoscopy. Mild adjacent infiltration has been shown on prior exams. Therefore, acute diverticulitis is considered less likely but cannot be excluded. No abscess. Redemonstration of a colovesicular fistula, unchanged. 3. No bowel obstruction. Hospital Course (1) Sepsis: (2) Abdominal pain: Sepsis with tachycardia, fever, elevated lactic acid, pancytopenia Source likely GI Abdominal CT findings noted. Possible diverticulitis Blood cultures grew E.coli Had a few episodes of diarrhea which has completely resolved Lactic acid was 2.6 on admission, trended down to 2 Discharge on augmentin bid to complete therapy (3) Pancytopenia: Patient is pancytopenic. This is likely related to chemo therapy. 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 Patient reported he already has follow up scheduled with colorectal surgery and oncology Advised to keep the appointments Total Time Total Time Spent Total Time Spent (In Minutes): 40 Total Time Includes: Examination of the Patient, Discharge Planning and Medication Reconciliation Discharge Plan Discharge Items Patient Disposition: Home - Home Health Services Reason For Visit: SEPSIS Discharge Diagnosis: E. coli sepsis Abdominal pain Pancytopenia Activity: Resume your previous activity Non-emergency contact: Primary Care Provider, Surgeon and Oncologist Call non-emergency contact if: you have any medication questions Follow-up/Referrals: Florentino Manjarrez, [Primary Care Provider] - Diet: Heart Healthy Addtl Attending Provider Instructions: Mr Marrero You came to the hospital complaining of abdominal pain and fever. Evaluation showed sepsis with E. coli. You were treated with injection antibiotics. Please continue taking the oral antibiotics you are being discharged on to complete treatment. Please follow up with appointments you stated are already scheduled with your oncologist and colorectal surgeon. Please follow up with your Primary Doctor and monitor your blood pressure as we discussed. It was a pleasure taking care. Pending Studies at Discharge: No Stand-Alone Forms: My [facility], Smoking Cessation Medications and DC Order Prescriptions: New amoxicillin-pot clavulanate [Augmentin] 875-125 mg tablet 1 tab PO BID 10 Days Qty: 20 RF: 0 Continued Rezs-Htnp-Edvl-Water 10 ml PO UD RF: 0 Discharge Orders: Discharge Order (Routine); Ordered 03/13/20 Ordered By: Denia Chilel Admission Data Admit Date/Time: 03/10/20 21:00 Attending Provider: Denia Chilel I. Admit Provider: John Lynn Primary Care Provider: Florentino Manjarrez Other Providers: John Lynn ; Eugenio Stark ; Darlyn Duran ; Jessee Castellon ; Sunshine Gamboa ; Micheal Reis ; Shane Lomax ; Michelle Brunson ; Elmer Quesada ; Monique Romero ; Valdo Flowers Jr ; Vivian Church ; Jimena Ramey ; Shimon Brennan ; [facility] Other Interventions: Discharge Summary Assessment (RN) Last Done: 03/13/20 12:07 DC Date/Time DO NOT enter until pt leaves facility: 03/13/20 13:08
[2020-03-13 12:09] VITALS: BP 160/91; PULSE 82
== END 2020-03-13 13:08 | disposition home health service (06) | DRG 871 ==
LOC: ED 17:45 → 2S 21:00